=== PATIENT | male | born 1950 | race Two or more races ===

== ENCOUNTER 2017-10-29 16:38 | Inpatient (IN) | payer MEDICARE, OTHER ==
[~2017-10-29] VITALS: Ht 175.3 cm; Wt 95.7 kg
[~2017-10-29 16:38] MED LIST: CEPHALEXIN500 MG ORAL; CLINDAMYCIN HC300 MG ORAL; IBUPROFEN600 MG ORAL; TENORMIN50 MG ORAL; UNOBMED
[2017-10-29 16:54] VITALS: BP 111/58
--- NOTE | 2017-10-29 17:19 | Emergency Room Report ---
History of Present Illness General Chief Complaint: Abdominal Pain Source: Patient, Family Member Present Illness HPI Patient presents with passing blood per rectum. Started this morning. He passed both dark red and black stool. This continued to pass bloody stools and priscila blood and clots through the day. Doesn't feel dizzy when he stands. No vomiting or nausea. No chest pain, palpitations, blood thinners. The patient had colonoscopy 3 months ago and was told he has hemorrhoids. Also after I mentioned the possibility of diverticulosis his daughter states that they found that also. The patient denies any fevers. He has a 6/10 lower abdominal pain that's intermittent with crampiness and nonradiating. The patient denies any dysuria. He usually has to strain with his bowel movements and is on a stool softener at this time. The patient was hospitalized for ulcers when he was young. He has HIV on antivirals. Allergies: Coded Allergies: No Known Allergies (Unverified , 07/05/16) Patient History Past Medical History: see triage record Social History: Denies: smoking, alcohol use, drug use Social History Narrative with daughter Reviewed Nursing Documentation: PMH: Agreed, PSxH: Agreed Nursing Documentation-PMH Hx Hypertension: Yes Review of Systems All Other Systems: negative except mentioned in HPI Physical Exam Vital Signs Date Time Temp Pulse Resp B/P (MAP) Pulse Ox O2 Delivery O2 Flow Rate FiO2 10/29/17 16:44 98.1 76 18 146/91 96 Room Air Sp02 EP Interpretation: reviewed, normal General Appearance: well appearing, no apparent distress, GCS 15 Head: normocephalic, atraumatic Eyes: bilateral eye normal inspection, bilateral eye PERRL ENT: moist mucus membranes Neck: supple Respiratory: lungs clear, normal breath sounds Cardiovascular #1: regular rate, rhythm Cardiovascular #2: 2+ radial (R) Gastrointestinal: normal inspection, normal bowel sounds, non tender, no mass, non-distended Rectal: other - gross blood with clots Musculoskeletal: back normal, gait/station normal, normal range of motion Neurologic: alert, oriented x3, grossly normal Psychiatric: mood/affect normal Skin: normal inspection, warm/dry Medical Decision Making Diagnostic Impression: Primary Impression: Lower GI bleeding Additional Impressions: Diverticulosis Qualified Codes: K57.31 - Diverticulosis of large intestine without perforation or abscess with bleeding Hemorrhoid Qualified Codes: K64.0 - First degree hemorrhoids ER Course Patient presents with lower GI bleed. DDX: diverticulosis, hemorrhoids, UGI source.. Due to recent colonoscopy, mass or polyp less likely. He states he had some dark stool so UGI source not excluded. Due to the amount of bleeding, suspect diverticulosis more than hemorrhoids. Evaluation with EKG, CXR, CT abd/ pelvis and labs. Treatment with IV hydration, pepcid. Tylenol given for abdominal pain (rejects stronger analgesics). Patient start to ambulate to bathroom and became pale and dizzy. With the amount of blood passed in commode, suspect significant hemorrhage. Blood screened. EKG without injury. CXR unremarkable. Labs with normal H/H and coags. Lipase minimally elevated, no clinical signs/symptoms of pancreatitis. CT scanner not functioning. Admit telemetry, Dr. Soliman. CT done. Laboratory Tests Test 10/29/17 17:20 10/29/17 17:30 10/29/17 21:10 White Blood Count 8.8 K/UL (4.8-10.8) 12.6 K/UL (4.8-10.8) H Red Blood Count 4.42 M/UL (4.70-6.10) L 4.00 M/UL (4.70-6.10) L Hemoglobin 15.0 G/DL (14.2-18.0) 13.6 G/DL (14.2-18.0) L Hematocrit 44.7 % (42.0-52.0) 40.7 % (42.0-52.0) L Mean Corpuscular Volume 101 FL (80-99) H 102 FL (80-99) H Mean Corpuscular Hemoglobin 34.0 PG (27.0-31.0) H 34.0 PG (27.0-31.0) H Mean Corpuscular Hemoglobin Concent 33.6 G/DL (32.0-36.0) 33.4 G/DL (32.0-36.0) Red Cell Distribution Width 11.4 % (11.6-14.8) L 11.6 % (11.6-14.8) Platelet Count 312 K/UL (150-450) 295 K/UL (150-450) Mean Platelet Volume 6.9 FL (6.5-10.1) 6.8 FL (6.5-10.1) Neutrophils (%) (Auto) 43.8 % (45.0-75.0) L 68.2 % (45.0-75.0) Lymphocytes (%) (Auto) 30.4 % (20.0-45.0) 16.9 % (20.0-45.0) L Monocytes (%) (Auto) 6.9 % (1.0-10.0) 4.1 % (1.0-10.0) Eosinophils (%) (Auto) 17.8 % (0.0-3.0) H 10.0 % (0.0-3.0) H Basophils (%) (Auto) 1.0 % (0.0-2.0) 0.9 % (0.0-2.0) Prothrombin Time 10.0 SEC (9.30-11.50) Prothrombin Time INR 1.0 (0.9-1.1) PTT 27 SEC (23-33) Sodium Level 141 MMOL/L (136-145) Potassium Level 3.8 MMOL/L (3.5-5.1) Chloride Level 103 MMOL/L (98-107) Carbon Dioxide Level 30 MMOL/L (21-32) Anion Gap 8 mmol/L (5-15) Blood Urea Nitrogen 15 mg/dL (7-18) Creatinine 1.2 MG/DL (0.55-1.30) Estimate Glomerular Filtration Rate > 60 mL/min (>60) Glucose Level 108 MG/DL (74-106) H Calcium Level 9.0 MG/DL (8.5-10.1) Total Bilirubin 0.2 MG/DL (0.2-1.0) Aspartate Amino Transferase (AST) 20 U/L (15-37) Alanine Aminotransferase (ALT) 27 U/L (12-78) Alkaline Phosphatase 112 U/L (46-116) Total Creatine Kinase 160 U/L (26-308) Troponin I 0.000 ng/mL (0.000-0.056) Total Protein 7.5 G/DL (6.4-8.2) Albumin 3.6 G/DL (3.4-5.0) Globulin 3.9 g/dL Albumin/Globulin Ratio 0.9 (1.0-2.7) L Lipase 537 U/L (73-393) H Urine Color Pale yellow Urine Appearance Clear Urine pH 5 (4.5-8.0) Urine Specific [place] 1.020 (1.005-1.035) Urine Protein Negative (NEGATIVE) Urine Glucose (UA) Negative (NEGATIVE) Urine Ketones Negative (NEGATIVE) Urine Occult Blood 1+ (NEGATIVE) H Urine Nitrite Negative (NEGATIVE) Urine Bilirubin Negative (NEGATIVE) Urine Urobilinogen Normal MG/DL (0.0-1.0) Urine Leukocyte Esterase Negative (NEGATIVE) Urine RBC 2-4 /HPF (0 - 0) H Urine WBC 0-2 /HPF (0 - 0) Urine Squamous Epithelial Cells None /LPF (NONE/OCC) Urine Bacteria Occasional /HPF (NONE) EKG Diagnostic Results Rate: bradycardiac ST Segments: no acute changes Rhythm Strip Diag. Results EP Interpretation: yes Rhythm: NSR, no PVC's, no ectopy Chest X-Ray Diagnostic Results Chest X-Ray Diagnostic Results : Chest X-Ray Ordered: Yes # of Views/Limited/Complete: 1 View Indication: Other EP Interpretation: Yes Interpretation: no effusion, no pneumothorax, other - atelectasis L Impression: Other Electronically Signed by: Osbaldo May MD CT/MRI/US Diagnostic Results CT/MRI/US Diagnostic Results : Imaging Test Ordered: abd/pelvis Impression IMPRESSION: Thickening of some small bowel loops may be reflective of an enteritis ( infectious or inflammatory) the appropriate clinical setting. No bowel obstruction. Appendix is normal. Scattered colonic diverticula. No evidence of acute diverticulitis. Left lower quadrant hernia containing unobstructed loop of sigmoid colon. 2 cm indeterminate left adrenal nodule. Recommend comparison with prior exams, if available, to assess stability. Alternatively, definitive evaluation with adrenal protocol CT or MRI recommended on nonemergent basis. Possible subcentimeter hepatic cyst. Bladder wall thickening versus underdistention. Correlate with urinalysis. Last Vital Signs Date Time Temp Pulse Resp B/P (MAP) Pulse Ox O2 Delivery O2 Flow Rate FiO2 10/30/17 03:35 63 10/30/17 00:00 98.1 20 130/90 98 Room Air Status: improved Disposition: ADMITTED INPATIENT Condition: Serious Osbaldo May M.D. Oct 29, 2017 17:19
[2017-10-29 17:36] LABS: EOSINOPHILS % (AUTO) 17.8 % (0.0-3.0); HEMATOCRIT 44.7 % (42.0-52.0); LYMPHOCYTES % (AUTO) 30.4 % (20.0-45.0); MEAN CORPUSCULAR VOLUME 101 FL (80-99); MONOCYTES % (AUTO) 6.9 % (1.0-10.0); NEUTROPHILS % (AUTO) 43.8 % (45.0-75.0); PLATELET COUNT 312 K/UL (150-450); RED BLOOD COUNT 4.42 M/UL (4.70-6.10); RED CELL DISTRIBUTION WIDTH 11.4 % (11.6-14.8); WHITE BLOOD COUNT 8.8 K/UL (4.8-10.8)
[2017-10-29 17:43] LABS: APPEARANCE,URINE CLEAR; BILIRUBIN, URINE NEGATIVE (NEGATIVE); COLOR,URINE PALE YELLOW; GLUCOSE, URINE (UA) NEGATIVE (NEGATIVE); KETONES,URINE NEGATIVE (NEGATIVE); LEUKOCYTE ESTERASE ,URINE NEGATIVE (NEGATIVE); NITRITE,URINE NEGATIVE (NEGATIVE); PH,URINE 5 (4.5-8.0); PROTEIN,URINE NEGATIVE (NEGATIVE); UROBILINOGEN,URINE NORMAL MG/DL (0.0-1.0)
[2017-10-29 17:55] LABS: ANION GAP 8 mmol/L (5-15); BLOOD UREA NITROGEN 15 mg/dL (7-18); CARBON DIOXIDE 30 MMOL/L (21-32); CHLORIDE 103 MMOL/L (98-107); CREATININE 1.2 MG/DL (0.55-1.30); POTASSIUM 3.8 MMOL/L (3.5-5.1); SODIUM 141 MMOL/L (136-145)
[2017-10-29 17:59] LABS: ALANINE AMINOTRANSFERASE 27 U/L (12-78); ALBUMIN 3.6 G/DL (3.4-5.0); ALBUMIN/GLOBULIN RATIO 0.9 (1.0-2.7); ALKALINE PHOSPHATASE 112 U/L (46-116); ASPARTATE AMINO TRANSFERASE 20 U/L (15-37); BILIRUBIN,TOTAL 0.2 MG/DL (0.2-1.0); CREATINE KINASE 160 U/L (26-308)
[2017-10-29 18:38] VITALS: BP 135/83
[2017-10-29] MEDS ORDERED: BACLOFEN10 MG ORAL (18:58)
[2017-10-29] MEDS ORDERED: LORATADINE10 M3 PO (18:58)
[2017-10-29] MEDS ORDERED: CAPSAICIN60 GM TP (18:58)
[2017-10-29] MEDS ORDERED: ATRIPLA TABLET1 EAC1 ORAL (18:58)
[2017-10-29] MEDS ORDERED: FLUOCINONIDE-E15 G1 TP (18:58)
[2017-10-29] MEDS ORDERED: ASPIR 8181 MG ORAL (18:58)
[2017-10-29] MEDS ORDERED: IBUPROFEN600 MG ORAL (18:58)
[2017-10-29] MEDS ORDERED: ATENOLOL50 MG ORAL (18:58)
[2017-10-29] MEDS ORDERED: DIPHENHYDRAMINE25 M1 ORAL (18:58)
[2017-10-29 19:20] VITALS: BP 123/71
[2017-10-29 20:55] VITALS: BP 131/69
[2017-10-29 21:40] LABS: BASOPHILS % (AUTO) 0.9 % (0.0-2.0); HEMATOCRIT 40.7 % (42.0-52.0); HEMOGLOBIN 13.6 G/DL (14.2-18.0); LYMPHOCYTES % (AUTO) 16.9 % (20.0-45.0); MEAN CORPUSCULAR VOLUME 102 FL (80-99); MONOCYTES % (AUTO) 4.1 % (1.0-10.0); NEUTROPHILS % (AUTO) 68.2 % (45.0-75.0); PLATELET COUNT 295 K/UL (150-450); RED CELL DISTRIBUTION WIDTH 11.6 % (11.6-14.8); WHITE BLOOD COUNT 12.6 K/UL (4.8-10.8)
[2017-10-29 22:00] VITALS: BP 149/83
[2017-10-29] MEDS: D5NS 1,000 ML IV SCH (22:31)
[2017-10-29] MEDS: Pantoprazole Inj IVP SCH (22:32)
[2017-10-29] MEDS: Piperacillin/Tazobactam 3.375 GM in NS 110 ML IVPB SCH (22:32)
--- NOTE | 2017-10-29 23:30 | History and Physical Report ---
DATE OF ADMISSION: 10/29/2017 CHIEF COMPLAINT: GI bleed. HISTORY OF PRESENT ILLNESS: The patient is a pleasant 67-year-old male. He has a history of HIV, internal hemorrhoids, diverticulitis, and hypertension, who presented from home with complaints of bright red blood per rectum. According to the patient, he was well until the day of admission. He developed lower abdominal pain with episodes of bright red blood with some clots. He recently underwent endoscopy in March for constipation and was noted to have diverticulitis and internal hemorrhoids at that time. He denies any fevers or chills. He has had no chest pain. He feels "bloated." He is on aspirin, not on any NSAIDs. On evaluation in the emergency room, the patient's hemoglobin was stable at 15. Coags are normal, but in light of the bleeding, he is now admitted for further evaluation and care. PAST MEDICAL HISTORY: History of osteoarthritis. PAST SURGICAL HISTORY: None. CURRENT MEDICATIONS: Reconciled and reviewed. ALLERGIES: None. FAMILY HISTORY: None. SOCIAL HISTORY: Negative for tobacco, ethanol, or drugs. REVIEW OF SYSTEMS: Negative except for bloating, abdominal pain, and bright red blood. PHYSICAL EXAMINATION: VITAL SIGNS: Temperature 95, pulse 63, respirations 14, and blood pressure 135/83. GENERAL: The patient is well-developed male, in no apparent distress. HEART: Regular rate and rhythm. LUNGS: Clear. ABDOMEN: Soft, slightly distended. There is no rebound or guarding. EXTREMITIES: Without clubbing, cyanosis, or edema. LABORATORY DATA: Sodium 141, potassium 3.8. White count 8, hemoglobin 15, and platelet count of 312,000. UA was clear. ASSESSMENT: 1. This is a pleasant male with complaints of gastrointestinal bleed suspect secondary to diverticulosis. However, his gastrointestinal bleed is suspect lower. 2. Possible diverticulitis. 3. History of human immunodeficiency virus. PLAN: Hold aspirin. Intravenous proton pump inhibitors. Monitor serial CBCs. GI consultation will be obtained. Plan of care was discussed at bedside with the patient and the patient's family. Anish Soliman M.D. DR: DEREK JOB#: [id number] CC:
[2017-10-30] VITALS (7 sets, daily range): BP systolic 96–130; BP diastolic 68–90
[2017-10-30] MEDS: Piperacillin/Tazobactam 3.375 GM in NS 110 ML IVPB SCH ×3 (05:43→22:14)
[2017-10-30 07:42] LABS: BASOPHILS % (AUTO) 1.1 % (0.0-2.0); HEMATOCRIT 35.7 % (42.0-52.0); HEMOGLOBIN 12.1 G/DL (14.2-18.0); LYMPHOCYTES % (AUTO) 24.9 % (20.0-45.0); MEAN CORPUSCULAR VOLUME 102 FL (80-99); MONOCYTES % (AUTO) 7.2 % (1.0-10.0); NEUTROPHILS % (AUTO) 49.8 % (45.0-75.0); PLATELET COUNT 257 K/UL (150-450); RED CELL DISTRIBUTION WIDTH 11.4 % (11.6-14.8); WHITE BLOOD COUNT 7.6 K/UL (4.8-10.8)
[2017-10-30 08:12] LABS: ALANINE AMINOTRANSFERASE 21 U/L (12-78); ALBUMIN/GLOBULIN RATIO 0.9 (1.0-2.7); ALKALINE PHOSPHATASE 93 U/L (46-116); ANION GAP 6 mmol/L (5-15); ASPARTATE AMINO TRANSFERASE 17 U/L (15-37); BILIRUBIN,TOTAL 0.3 MG/DL (0.2-1.0); BLOOD UREA NITROGEN 14 mg/dL (7-18); CALCIUM 8.2 MG/DL (8.5-10.1); CARBON DIOXIDE 29 MMOL/L (21-32); CHLORIDE 106 MMOL/L (98-107); CREATININE 1.1 MG/DL (0.55-1.30); POTASSIUM 3.8 MMOL/L (3.5-5.1); SODIUM 141 MMOL/L (136-145)
[2017-10-30] MEDS: Pantoprazole Inj IVP SCH ×2 (08:56→21:22)
--- NOTE | 2017-10-30 09:58 | Diagnostic Imaging Report ---
. Indication: Pain Technique: XRAY Chest 1v Comparison: None Findings: Heart is borderline enlarged. Mediastinal contours are sharp. There is streaky atelectasis of the left base. Otherwise, there is no focal airspace consolidation, pleural effusion or pneumothorax. No acute osseous abnormality seen. Impression: Borderline cardiomegaly. Streaky opacity at the left base thought to represent subsegmental atelectasis. Clinical correlation recommended. Study obtained via the emergency department however patient admitted to the hospital at time of dictation of final report.
[2017-10-30] MEDS: D5NS 1,000 ML IV SCH ×2 (10:16→23:40)
--- NOTE | 2017-10-30 11:29 | Diagnostic Imaging Report ---
Indication: Abdominal pain Technique: CT of the abdomen and pelvis utilizing automated exposure control with intravenous contrast. Venous scanning performed. CT dose: Total DLP 1091.61 mGycm; CTDI vol 18.84 mGy Comparison: None Findings: Dependent atelectasis noted in the lung bases. Heart is borderline enlarged. Aortic valvular and coronary arterial calcifications noted. 8 mm well-circumscribed low-attenuation lesion in the right hepatic lobe is too small to definitively characterize but may represent a cyst (series 3 image #18). There is a punctate calcification in the posterior right hepatic lobe. Gallbladder is unremarkable in appearance. Portal vein is patent. There is a 2 cm indeterminate left adrenal nodule. Right adrenal gland is normal in appearance. The spleen and pancreas are unremarkable in appearance. Kidneys are symmetric in enhancement. No urinary tract stone or hydronephrosis bilaterally. Apparent thickening of the bladder likely related to underdistention. Prostate is mildly enlarged with coarse central calcification. There is no free intraperitoneal air. No ascites. There is no bowel obstruction. There is thickening of some small bowel loops. These findings may be reflective of an enteritis in the appropriate clinical setting. The appendix is normal. There are a few scattered colonic diverticula. There is no evidence to suggest acute diverticulitis. Abdominal aorta is normal in caliber. There are small bilateral fat-containing inguinal hernias. There is an additional left lower quadrant hernia with the defect measuring approximately 4 cm in width. This hernia is noted to contain fat and a nonobstructed loop of sigmoid colon. There is multilevel degenerative change of the spine. No acute osseous abnormality is seen. IMPRESSION: Thickening of some small bowel loops may be reflective of an enteritis (infectious or inflammatory) the appropriate clinical setting. No bowel obstruction. Appendix is normal. Scattered colonic diverticula. No evidence of acute diverticulitis. Left lower quadrant hernia containing unobstructed loop of sigmoid colon. 2 cm indeterminate left adrenal nodule. Recommend comparison with prior exams, if available, to assess stability. Alternatively, definitive evaluation with adrenal protocol CT or MRI recommended on nonemergent basis. Possible subcentimeter hepatic cyst. Bladder wall thickening versus underdistention. Correlate with urinalysis. Additional findings as above. This corresponds with the statrad preliminary report. The CT scanner at [facility] is accredited by the [employer] and the scans are performed using protocols designed to limit radiation exposure to as low as reasonably achievable to attain images of sufficient resolution adequate for diagnostic evaluation.
--- NOTE | 2017-10-30 12:25 | General Progress Note ---
Assessment/Plan Assessment/Plan GI CONSULT Dictated Assessment - Hematochezia,suspect hemorrhoidal, less likely diverticular - Diverticulosis - Macrocytic anemia - HIV (+) - Transient elevated Lipase Recommendations - Clear liquid - Laxative - check B12, folate - Monitor CBC - Colonoscopy if bleeding persists - Hemorrhoidal cautery by colorectal surgery at later date Subjective Allergies: Coded Allergies: No Known Allergies (Unverified , 07/05/16) Objective Last 24 Hour Vital Signs Date Time Temp Pulse Resp B/P (MAP) Pulse Ox O2 Delivery O2 Flow Rate FiO2 10/30/17 08:00 97.5 62 18 129/72 98 Room Air 10/30/17 04:00 97.3 63 19 111/75 97 Room Air 10/30/17 03:35 63 10/30/17 00:14 62 10/30/17 00:00 98.1 67 20 130/90 98 Room Air 10/29/17 22:00 98.0 78 20 149/83 98 Room Air 10/29/17 21:37 65 10/29/17 21:16 98.5 66 14 131/69 98 Room Air 10/29/17 20:55 98.5 66 14 131/69 98 Room Air 10/29/17 19:20 98.5 72 14 123/71 98 Room Air 10/29/17 18:38 98.5 63 14 135/83 98 Room Air 10/29/17 16:54 98.1 55 20 111/58 96 Room Air 10/29/17 16:44 98.1 76 18 146/91 96 Room Air Intake and Output 10/29/17 10/30/17 19:00 07:00 Intake Total 710.5 ml Output Total 30 ml Balance 680.5 ml Intake IV Total 710.5 ml Output Stool Total 30 ml # Voids 1 2 # Bowel Movements 7 Laboratory Tests 10/29/17 17:20: White Blood Count 8.8, Red Blood Count 4.42L, Hemoglobin 15.0, Hematocrit 44.7, Mean Corpuscular Volume 101H, Mean Corpuscular Hemoglobin 34.0H, Mean Corpuscular Hemoglobin Concent 33.6, Red Cell Distribution Width 11.4L, Platelet Count 312, Mean Platelet Volume 6.9, Neutrophils (%) (Auto) 43.8L, Lymphocytes (%) (Auto) 30.4, Monocytes (%) (Auto) 6.9, Eosinophils (%) (Auto) 17.8H, Basophils (%) (Auto) 1.0, Prothrombin Time 10.0, Prothromb Time International Ratio 1.0, Activated Partial Thromboplast Time 27, Sodium Level 141, Potassium Level 3.8, Chloride Level 103, Carbon Dioxide Level 30, Anion Gap 8, Blood Urea Nitrogen 15, Creatinine 1.2, Estimat Glomerular Filtration Rate > 60, Glucose Level 108H, Calcium Level 9.0, Total Bilirubin 0.2, Aspartate Amino Transf (AST/SGOT) 20, Alanine Aminotransferase (ALT/SGPT) 27, Alkaline Phosphatase 112, Total Creatine Kinase 160, Troponin I 0.000, Total Protein 7.5, Albumin 3.6, Globulin 3.9, Albumin/Globulin Ratio 0.9L, Lipase 537H 10/29/17 17:30: Urine Color Pale yellow, Urine Appearance Clear, Urine pH 5, Urine Specific [place] 1.020, Urine Protein Negative, Urine Glucose (UA) Negative, Urine Ketones Negative, Urine Occult Blood 1+H, Urine Nitrite Negative, Urine Bilirubin Negative, Urine Urobilinogen Normal, Urine Leukocyte Esterase Negative , Urine RBC 2-4H, Urine WBC 0-2, Urine Squamous Epithelial Cells None, Urine Bacteria Occasional 10/29/17 21:10: White Blood Count 12.6H, Red Blood Count 4.00L, Hemoglobin 13.6L, Hematocrit 40.7L, Mean Corpuscular Volume 102H, Mean Corpuscular Hemoglobin 34.0H, Mean Corpuscular Hemoglobin Concent 33.4, Red Cell Distribution Width 11.6, Platelet Count 295, Mean Platelet Volume 6.8, Neutrophils (%) (Auto) 68.2, Lymphocytes (% ) (Auto) 16.9L, Monocytes (%) (Auto) 4.1, Eosinophils (%) (Auto) 10.0H, Basophils (%) (Auto) 0.9 10/30/17 06:15: White Blood Count 7.6, Red Blood Count 3.50L, Hemoglobin 12.1L, Hematocrit 35.7L , Mean Corpuscular Volume 102H, Mean Corpuscular Hemoglobin 34.6H, Mean Corpuscular Hemoglobin Concent 33.9, Red Cell Distribution Width 11.4L, Platelet Count 257, Mean Platelet Volume 6.3L, Neutrophils (%) (Auto) 49.8, Lymphocytes (%) (Auto) 24.9, Monocytes (%) (Auto) 7.2, Eosinophils (%) (Auto) 17.0H, Basophils (%) (Auto) 1.1, Sodium Level 141, Potassium Level 3.8, Chloride Level 106, Carbon Dioxide Level 29, Anion Gap 6, Blood Urea Nitrogen 14 , Creatinine 1.1, Estimat Glomerular Filtration Rate > 60, Glucose Level 105, Calcium Level 8.2L, Total Bilirubin 0.3, Aspartate Amino Transf (AST/SGOT) 17, Alanine Aminotransferase (ALT/SGPT) 21, Alkaline Phosphatase 93, Total Protein 6.2L, Albumin 3.0L, Globulin 3.2, Albumin/Globulin Ratio 0.9L 10/30/17 06:50: Lipase 251 10/30/17 11:50: White Blood Count [Pending], Red Blood Count [Pending], Hemoglobin [Pending], Hematocrit [Pending], Mean Corpuscular Volume [Pending], Mean Corpuscular Hemoglobin [Pending], Mean Corpuscular Hemoglobin Concent [Pending], Red Cell Distribution Width [Pending], Platelet Count [Pending], Mean Platelet Volume [ Pending], Neutrophils (%) (Auto) [Pending], Lymphocytes (%) (Auto) [Pending], Monocytes (%) (Auto) [Pending], Eosinophils (%) (Auto) [Pending], Basophils (%) (Auto) [Pending] Height (Feet): 5 Height (Inches): 9.00 Weight (Pounds): 211 SHASHI MARTINEZ Oct 30, 2017 12:25
[2017-10-30 12:37] LABS: BASOPHILS % (AUTO) 1.3 % (0.0-2.0); EOSINOPHILS % (AUTO) 16.4 % (0.0-3.0); HEMATOCRIT 38.3 % (42.0-52.0); HEMOGLOBIN 12.6 G/DL (14.2-18.0); LYMPHOCYTES % (AUTO) 26.6 % (20.0-45.0); MEAN CORPUSCULAR VOLUME 102 FL (80-99); MONOCYTES % (AUTO) 7.3 % (1.0-10.0); NEUTROPHILS % (AUTO) 48.4 % (45.0-75.0); PLATELET COUNT 268 K/UL (150-450); RED BLOOD COUNT 3.77 M/UL (4.70-6.10); RED CELL DISTRIBUTION WIDTH 11.5 % (11.6-14.8); WHITE BLOOD COUNT 8.3 K/UL (4.8-10.8)
[2017-10-30] MEDS ORDERED: Bisacodyl EC 5mg tab ORAL ONE (13:00)
[2017-10-30] MEDS ORDERED: Magnesium Citrate Liq Btl ORAL ONE (13:15)
[2017-10-30] MEDS ORDERED: Nulytely 4L ORAL ONE (14:30)
[2017-10-30 16:33] LABS: BASOPHILS % (AUTO) 1.2 % (0.0-2.0); EOSINOPHILS % (AUTO) 17.1 % (0.0-3.0); HEMATOCRIT 36.3 % (42.0-52.0); HEMOGLOBIN 12.3 G/DL (14.2-18.0); LYMPHOCYTES % (AUTO) 27.1 % (20.0-45.0); MEAN CORPUSCULAR VOLUME 101 FL (80-99); MONOCYTES % (AUTO) 7.4 % (1.0-10.0); NEUTROPHILS % (AUTO) 47.3 % (45.0-75.0); PLATELET COUNT 285 K/UL (150-450); RED BLOOD COUNT 3.61 M/UL (4.70-6.10); RED CELL DISTRIBUTION WIDTH 11.4 % (11.6-14.8); WHITE BLOOD COUNT 8.4 K/UL (4.8-10.8)
--- NOTE | 2017-10-30 17:49 | General Progress Note ---
Assessment/Plan Problem List: (1) Diverticulitis ICD Codes: K57.92 - Diverticulitis of intestine, part unspecified, without perforation or abscess without bleeding SNOMED: 078526776 (2) Diverticulosis ICD Codes: K57.90 - Diverticulosis of intestine, part unspecified, without perforation or abscess without bleeding SNOMED: 35177417 Qualifiers: Qualified Codes: K57.31 - Diverticulosis of large intestine without perforation or abscess with bleeding (3) Hemorrhoid ICD Codes: K64.9 - Unspecified hemorrhoids SNOMED: 95520418 Qualifiers: Qualified Codes: K64.0 - First degree hemorrhoids (4) Lower GI bleeding ICD Codes: K92.2 - Gastrointestinal hemorrhage, unspecified SNOMED: 91438828 Status: stable, not improved Assessment/Plan IV abx GI eval +/- colonoscopy PPI ID eval Subjective ROS Limited/Unobtainable: No Constitutional: Reports: malaise, weakness HEENT: Reports: no symptoms Cardiovascular: Reports: no symptoms Respiratory: Reports: no symptoms Gastrointestinal/Abdominal: Reports: abdominal pain, blood in stool Genitourinary: Reports: no symptoms Neurologic/Psychiatric: Reports: no symptoms Endocrine: Reports: no symptoms Hematologic/Lymphatic: Reports: no symptoms Allergies: Coded Allergies: No Known Allergies (Unverified , 07/05/16) All Systems: reviewed and negative except above Subjective continued BRBPR. +lower abd pain, no fever or chills. no cp.sob. Objective Last 24 Hour Vital Signs Date Time Temp Pulse Resp B/P (MAP) Pulse Ox O2 Delivery O2 Flow Rate FiO2 10/30/17 16:06 77 127/78 10/30/17 16:00 97.0 99 18 123/80 95 Room Air 10/30/17 12:00 97.3 60 18 123/77 97 Room Air 10/30/17 12:00 55 10/30/17 08:00 62 10/30/17 08:00 97.5 62 18 129/72 98 Room Air 10/30/17 04:00 97.3 63 19 111/75 97 Room Air 10/30/17 03:35 63 10/30/17 00:14 62 10/30/17 00:00 98.1 67 20 130/90 98 Room Air 10/29/17 22:00 98.0 78 20 149/83 98 Room Air 10/29/17 21:37 65 10/29/17 21:16 98.5 66 14 131/69 98 Room Air 10/29/17 20:55 98.5 66 14 131/69 98 Room Air 10/29/17 19:20 98.5 72 14 123/71 98 Room Air 10/29/17 18:38 98.5 63 14 135/83 98 Room Air Intake and Output 10/29/17 10/30/17 19:00 07:00 Intake Total 710.5 ml Output Total 30 ml Balance 680.5 ml Intake IV Total 710.5 ml Output Stool Total 30 ml # Voids 1 2 # Bowel Movements 7 Laboratory Tests 10/29/17 21:10: White Blood Count 12.6H, Red Blood Count 4.00L, Hemoglobin 13.6L, Hematocrit 40.7L, Mean Corpuscular Volume 102H, Mean Corpuscular Hemoglobin 34.0H, Mean Corpuscular Hemoglobin Concent 33.4, Red Cell Distribution Width 11.6, Platelet Count 295, Mean Platelet Volume 6.8, Neutrophils (%) (Auto) 68.2, Lymphocytes (% ) (Auto) 16.9L, Monocytes (%) (Auto) 4.1, Eosinophils (%) (Auto) 10.0H, Basophils (%) (Auto) 0.9 10/30/17 06:15: White Blood Count 7.6, Red Blood Count 3.50L, Hemoglobin 12.1L, Hematocrit 35.7L , Mean Corpuscular Volume 102H, Mean Corpuscular Hemoglobin 34.6H, Mean Corpuscular Hemoglobin Concent 33.9, Red Cell Distribution Width 11.4L, Platelet Count 257, Mean Platelet Volume 6.3L, Neutrophils (%) (Auto) 49.8, Lymphocytes (%) (Auto) 24.9, Monocytes (%) (Auto) 7.2, Eosinophils (%) (Auto) 17.0H, Basophils (%) (Auto) 1.1, Sodium Level 141, Potassium Level 3.8, Chloride Level 106, Carbon Dioxide Level 29, Anion Gap 6, Blood Urea Nitrogen 14 , Creatinine 1.1, Estimat Glomerular Filtration Rate > 60, Glucose Level 105, Calcium Level 8.2L, Total Bilirubin 0.3, Aspartate Amino Transf (AST/SGOT) 17, Alanine Aminotransferase (ALT/SGPT) 21, Alkaline Phosphatase 93, Total Protein 6.2L, Albumin 3.0L, Globulin 3.2, Albumin/Globulin Ratio 0.9L 10/30/17 06:50: Lipase 251 10/30/17 11:50: White Blood Count 8.3, Red Blood Count 3.77L, Hemoglobin 12.6L, Hematocrit 38.3L , Mean Corpuscular Volume 102H, Mean Corpuscular Hemoglobin 33.3H, Mean Corpuscular Hemoglobin Concent 32.8, Red Cell Distribution Width 11.5L, Platelet Count 268, Mean Platelet Volume 6.7, Neutrophils (%) (Auto) 48.4, Lymphocytes (%) (Auto) 26.6, Monocytes (%) (Auto) 7.3, Eosinophils (%) (Auto) 16.4H, Basophils (%) (Auto) 1.3 10/30/17 16:14: White Blood Count 8.4, Red Blood Count 3.61L, Hemoglobin 12.3L, Hematocrit 36.3L , Mean Corpuscular Volume 101H, Mean Corpuscular Hemoglobin 34.0H, Mean Corpuscular Hemoglobin Concent 33.8, Red Cell Distribution Width 11.4L, Platelet Count 285, Mean Platelet Volume 6.7, Neutrophils (%) (Auto) 47.3, Lymphocytes (%) (Auto) 27.1, Monocytes (%) (Auto) 7.4, Eosinophils (%) (Auto) 17.1H, Basophils (%) (Auto) 1.2 Height (Feet): 5 Height (Inches): 9.00 Weight (Pounds): 211 General Appearance: WD/WN, alert Neck: supple, normal inspection Cardiovascular: normal rate, regular rhythm Respiratory/Chest: chest wall non-tender, lungs clear, normal breath sounds, no respiratory distress Abdomen: normal bowel sounds, non tender, soft, no organomegaly Edema: no edema noted Arm (L), no edema noted Arm (R), no edema noted Leg (L), no edema noted Leg (R), no edema noted Pedal (L), no edema noted Pedal (R), no edema noted Generalized BABS ROBERTS Oct 30, 2017 17:49
[2017-10-30 19:41] LABS: BASOPHILS % (AUTO) 0.9 % (0.0-2.0); EOSINOPHILS % (AUTO) 15.2 % (0.0-3.0); HEMATOCRIT 34.7 % (42.0-52.0); HEMOGLOBIN 11.8 G/DL (14.2-18.0); LYMPHOCYTES % (AUTO) 31.9 % (20.0-45.0); MEAN CORPUSCULAR VOLUME 101 FL (80-99); MONOCYTES % (AUTO) 7.9 % (1.0-10.0); NEUTROPHILS % (AUTO) 44.2 % (45.0-75.0); PLATELET COUNT 300 K/UL (150-450); RED BLOOD COUNT 3.45 M/UL (4.70-6.10); RED CELL DISTRIBUTION WIDTH 11.5 % (11.6-14.8)
[2017-10-30] MEDS ORDERED: Simethicone 80mg tab PO ONE (22:15)
[2017-10-31] VITALS (9 sets, daily range): BP systolic 100–137; BP diastolic 52–76
--- NOTE | 2017-10-31 03:30 | Consultation ---
DATE OF CONSULTATION: 10/30/2017 GASTROENTEROLOGY CONSULTATION CONSULTING PHYSICIAN: Geneva Jesus M.D. ATTENDING/REFERRING PHYSICIAN: Anish Soliman M.D. CHIEF COMPLAINT: I was asked to see this patient by Dr. Anish Soliman for evaluation of gastrointestinal bleeding. HISTORY OF PRESENT ILLNESS: The patient is a 67-year-old [place] man with history of HIV positivity (the patient does not want his family to know about this), who came to the hospital due to one-day history of multiple hematochezia. The patient was well and then noticed some lower abdominal discomfort and multiple episodes of bright red blood per rectum with some clots. The patient had an endoscopy and colonoscopy in 03/2016, at an outside hospital and he has the report. The colonoscopy showed hemorrhoids and diverticulosis. The patient denies any vomiting. PAST MEDICAL HISTORY: History of osteoarthritis, history of HIV positivity, internal hemorrhoids, diverticulosis, and hypertension. FAMILY HISTORY: Father of myocardial infarction. SOCIAL HISTORY: The patient does not smoke or drink alcohol. The patient is and has 2 sons and 1 daughter. ALLERGIES: None. REVIEW OF SYSTEMS: Otherwise negative. MEDICATIONS: Atripla, atenolol, and aspirin. PHYSICAL EXAMINATION: GENERAL: A pleasant man, seen in his room. HEENT: Normocephalic, atraumatic. Sclerae anicteric. Oropharynx clear. NECK: Supple. CHEST: Clear to auscultation. CARDIOVASCULAR: Regular rate. ABDOMEN: Soft. Good bowel sounds. There is no organomegaly. There is no obvious tenderness to palpation, masses, or organomegaly. RECTAL: Revealed hemorrhoids which was positive for prolapse. EXTREMITIES: No edema. NEUROLOGIC: Nonfocal. LABORATORY AND DIAGNOSTIC DATA: Noted. ASSESSMENT: This patient has come to the hospital due to gastrointestinal bleeding. He does have some macrocytic indices on CBC, which is unusual and he should be evaluated for B12 and folate deficiency. Since the bleeding seems to have had stopped this morning, but then it started again. Therefore, the patient was scheduled for endoscopy and colonoscopy for tomorrow for evaluation of the site of bleeding. In the meantime, he can be transfused as needed and vitamin B12 and folate levels will be measured for tomorrow. RECOMMENDATIONS: Per above discussion and per orders written in the chart. Thank you for asking me to participate in the care of this patient. Geneva Jesus M.D. DR: SAMRA JOB#: [id number] CC: PAMELA
[2017-10-31] MEDS: Piperacillin/Tazobactam 3.375 GM in NS 110 ML IVPB SCH ×3 (06:37→22:23)
[2017-10-31] MEDS ORDERED: Sorbitol Solution UD 30ml ORAL ONE (07:00)
[2017-10-31 07:23] LABS: EOSINOPHILS % (AUTO) 13.2 % (0.0-3.0); HEMATOCRIT 31.2 % (42.0-52.0); HEMOGLOBIN 10.7 G/DL (14.2-18.0); LYMPHOCYTES % (AUTO) 23.1 % (20.0-45.0); MEAN CORPUSCULAR VOLUME 102 FL (80-99); MONOCYTES % (AUTO) 7.8 % (1.0-10.0); PLATELET COUNT 255 K/UL (150-450); RED BLOOD COUNT 3.07 M/UL (4.70-6.10); RED CELL DISTRIBUTION WIDTH 11.4 % (11.6-14.8); WHITE BLOOD COUNT 6.8 K/UL (4.8-10.8)
[2017-10-31 08:32] LABS: % IRON SATURATION 55 % (15-50); IRON 98 ug/dL (50-175); TOTAL IRON BINDING CAPACITY 179 ug/dL (250-450)
[2017-10-31] MEDS: Pantoprazole Inj IVP SCH ×3 (09:00→22:23)
--- NOTE | 2017-10-31 10:00 | General Progress Note ---
Assessment/Plan Problem List: (1) Diverticulitis ICD Codes: K57.92 - Diverticulitis of intestine, part unspecified, without perforation or abscess without bleeding SNOMED: 482798130 (2) Diverticulosis ICD Codes: K57.90 - Diverticulosis of intestine, part unspecified, without perforation or abscess without bleeding SNOMED: 71029917 Qualifiers: Qualified Codes: K57.31 - Diverticulosis of large intestine without perforation or abscess with bleeding (3) Hemorrhoid ICD Codes: K64.9 - Unspecified hemorrhoids SNOMED: 58737424 Qualifiers: Qualified Codes: K64.0 - First degree hemorrhoids (4) Lower GI bleeding ICD Codes: K92.2 - Gastrointestinal hemorrhage, unspecified SNOMED: 96313480 Status: stable, progressing Assessment/Plan IV abx colonoscopy PPI ID eval Subjective ROS Limited/Unobtainable: No Constitutional: Reports: malaise, weakness HEENT: Reports: no symptoms Cardiovascular: Reports: no symptoms Respiratory: Reports: no symptoms Gastrointestinal/Abdominal: Reports: rectal bleeding Genitourinary: Reports: no symptoms Neurologic/Psychiatric: Reports: no symptoms Endocrine: Reports: no symptoms Hematologic/Lymphatic: Reports: anemia Allergies: Coded Allergies: No Known Allergies (Unverified , 07/05/16) All Systems: reviewed and negative except above Subjective no more bleeding. decreased abd pain. on abx. Objective Last 24 Hour Vital Signs Date Time Temp Pulse Resp B/P (MAP) Pulse Ox O2 Delivery O2 Flow Rate FiO2 10/31/17 08:00 97.9 65 20 100/52 97 10/31/17 04:00 88 10/31/17 04:00 98.0 86 18 104/72 100 10/31/17 00:00 79 10/31/17 00:00 97.2 73 18 112/64 93 10/30/17 20:00 79 10/30/17 20:00 97.0 87 19 96/68 96 10/30/17 16:06 77 127/78 10/30/17 16:00 97.0 99 18 123/80 95 Room Air 10/30/17 16:00 65 10/30/17 12:00 97.3 60 18 123/77 97 Room Air 10/30/17 12:00 55 Intake and Output 10/30/17 10/31/17 19:00 07:00 # Voids 3 2 # Bowel Movements 5 3 Laboratory Tests 10/30/17 11:50: White Blood Count 8.3, Red Blood Count 3.77L, Hemoglobin 12.6L, Hematocrit 38.3L , Mean Corpuscular Volume 102H, Mean Corpuscular Hemoglobin 33.3H, Mean Corpuscular Hemoglobin Concent 32.8, Red Cell Distribution Width 11.5L, Platelet Count 268, Mean Platelet Volume 6.7, Neutrophils (%) (Auto) 48.4, Lymphocytes (%) (Auto) 26.6, Monocytes (%) (Auto) 7.3, Eosinophils (%) (Auto) 16.4H, Basophils (%) (Auto) 1.3 10/30/17 16:14: White Blood Count 8.4, Red Blood Count 3.61L, Hemoglobin 12.3L, Hematocrit 36.3L , Mean Corpuscular Volume 101H, Mean Corpuscular Hemoglobin 34.0H, Mean Corpuscular Hemoglobin Concent 33.8, Red Cell Distribution Width 11.4L, Platelet Count 285, Mean Platelet Volume 6.7, Neutrophils (%) (Auto) 47.3, Lymphocytes (%) (Auto) 27.1, Monocytes (%) (Auto) 7.4, Eosinophils (%) (Auto) 17.1H, Basophils (%) (Auto) 1.2 10/30/17 19:30: White Blood Count 10.0, Red Blood Count 3.45L, Hemoglobin 11.8L, Hematocrit 34.7L, Mean Corpuscular Volume 101H, Mean Corpuscular Hemoglobin 34.2H, Mean Corpuscular Hemoglobin Concent 34.0, Red Cell Distribution Width 11.5L, Platelet Count 300, Mean Platelet Volume 6.5, Neutrophils (%) (Auto) 44.2L, Lymphocytes (%) (Auto) 31.9, Monocytes (%) (Auto) 7.9, Eosinophils (%) (Auto) 15.2H, Basophils (%) (Auto) 0.9 10/31/17 05:20: White Blood Count 6.8, Red Blood Count 3.07L, Hemoglobin 10.7L, Hematocrit 31.2L , Mean Corpuscular Volume 102H, Mean Corpuscular Hemoglobin 34.8H, Mean Corpuscular Hemoglobin Concent 34.3, Red Cell Distribution Width 11.4L, Platelet Count 255, Mean Platelet Volume 6.3L, Neutrophils (%) (Auto) 55.0, Lymphocytes (%) (Auto) 23.1, Monocytes (%) (Auto) 7.8, Eosinophils (%) (Auto) 13.2H, Basophils (%) (Auto) 1.0, Iron Level 98, Total Iron Binding Capacity 179L , Percent Iron Saturation 55H, Unsaturated Iron Binding 81L, Vitamin B12 Level 598, Folate 5.5L Height (Feet): 5 Height (Inches): 9.00 Weight (Pounds): 211 Objective General Appearance: WD/WN, alert Neck: supple, normal inspection Cardiovascular: normal rate, regular rhythm Respiratory/Chest: chest wall non-tender, lungs clear, normal breath sounds, no respiratory distress Abdomen: normal bowel sounds, non tender, soft, no organomegaly Edema: no edema noted Arm (L), no edema noted Arm (R), no edema noted Leg (L), no edema noted Leg (R), no edema noted Pedal (L), no edema noted Pedal (R), no edema noted Generalized BABS ROBERTS Oct 31, 2017 10:00
--- NOTE | 2017-10-31 10:12 | Anethesia Preoperative Eval ---
Anesthesia Pre-op PMH/ROS General Date of Evaluation: Oct 31, 2017 Time of Evaluation: 10:02 Anesthesiologist: rian ASA Score: ASA 3 Mallampati Score Class I : Soft palate, uvula, fauces, pillars visible Class II: Soft palate, uvula, fauces visible Class III: Soft palate, base of uvula visible Class IV: Only hard plate visible Mallampati Classification: Class II Surgeon: floyd Diagnosis: gi bleed Surgical Procedure: egd/colonoscopy Anesthesia History: none Social History: smoking - nonsmoker Family History: no anesthesia problems Allergies: Coded Allergies: No Known Allergies (Unverified , 07/05/16) Medications: see eMAR Past Medical History Cardiovascular: Reports: HTN Gastrointestinal/Genitourinary: Reports: other Hematology/Immune: Reports: other - HIV Musculoskeletal/Integumentary: Reports: OA Anesthesia Pre-op Phys. Exam Physician Exam Last Vital Signs Date Time Temp Pulse Resp B/P (MAP) Pulse Ox O2 Delivery O2 Flow Rate FiO2 10/31/17 08:00 97.9 65 20 100/52 97 10/30/17 16:00 Room Air Constitutional: NAD Neurologic: CN 2-12 intact Cardiovascular: RRR Respiratory: CTA Gastrointestinal: S/NT/ND Airway Exam Mallampati Score: Class II MO: full Neck: supple TMD: 2fb ROM: limited Anesthesia Pre-op A/P Labs Hematology Test 10/30/17 11:50 10/30/17 16:14 10/30/17 19:30 10/31/17 05:20 White Blood Count 8.3 K/UL (4.8-10.8) 8.4 K/UL (4.8-10.8) 10.0 K/UL (4.8-10.8) 6.8 K/UL (4.8-10.8) Red Blood Count 3.77 M/UL (4.70-6.10) L 3.61 M/UL (4.70-6.10) L 3.45 M/UL (4.70-6.10) L 3.07 M/UL (4.70-6.10) L Hemoglobin 12.6 G/DL (14.2-18.0) L 12.3 G/DL (14.2-18.0) L 11.8 G/DL (14.2-18.0) L 10.7 G/DL (14.2-18.0) L Hematocrit 38.3 % (42.0-52.0) L 36.3 % (42.0-52.0) L 34.7 % (42.0-52.0) L 31.2 % (42.0-52.0) L Mean Corpuscular Volume 102 FL (80-99) H 101 FL (80-99) H 101 FL (80-99) H 102 FL (80-99) H Mean Corpuscular Hemoglobin 33.3 PG (27.0-31.0) H 34.0 PG (27.0-31.0) H 34.2 PG (27.0-31.0) H 34.8 PG (27.0-31.0) H Mean Corpuscular Hemoglobin Concent 32.8 G/DL (32.0-36.0) 33.8 G/DL (32.0-36.0) 34.0 G/DL (32.0-36.0) 34.3 G/DL (32.0-36.0) Red Cell Distribution Width 11.5 % (11.6-14.8) L 11.4 % (11.6-14.8) L 11.5 % (11.6-14.8) L 11.4 % (11.6-14.8) L Platelet Count 268 K/UL (150-450) 285 K/UL (150-450) 300 K/UL (150-450) 255 K/UL (150-450) Mean Platelet Volume 6.7 FL (6.5-10.1) 6.7 FL (6.5-10.1) 6.5 FL (6.5-10.1) 6.3 FL (6.5-10.1) L Neutrophils (%) (Auto) 48.4 % (45.0-75.0) 47.3 % (45.0-75.0) 44.2 % (45.0-75.0) L 55.0 % (45.0-75.0) Lymphocytes (%) (Auto) 26.6 % (20.0-45.0) 27.1 % (20.0-45.0) 31.9 % (20.0-45.0) 23.1 % (20.0-45.0) Monocytes (%) (Auto) 7.3 % (1.0-10.0) 7.4 % (1.0-10.0) 7.9 % (1.0-10.0) 7.8 % (1.0-10.0) Eosinophils (%) (Auto) 16.4 % (0.0-3.0) H 17.1 % (0.0-3.0) H 15.2 % (0.0-3.0) H 13.2 % (0.0-3.0) H Basophils (%) (Auto) 1.3 % (0.0-2.0) 1.2 % (0.0-2.0) 0.9 % (0.0-2.0) 1.0 % (0.0-2.0) Chemistry Test 10/31/17 05:20 Iron Level 98 ug/dL (50-175) Total Iron Binding Capacity 179 ug/dL (250-450) L Percent Iron Saturation 55 % (15-50) H Unsaturated Iron Binding 81 ug/dL (112-346) L Vitamin B12 Level 598 PG/ML (193-986) Folate 5.5 NG/ML (8.6-58.9) L Studies Pre-op Studies: EKG - sinus bradycardia Risk Assessment & Plan Assessment: asa3 Plan: mac Status Change Before Surgery: No Pre-Antibiotics Drug: AYANA Joseph Oct 31, 2017 10:12
[2017-10-31] MEDS: D5NS 1,000 ML IV SCH (13:30)
[2017-10-31] MEDS ORDERED: Lidocaine 1% MPF 10mg/ml 5ml ONE ×2 (13:30→14:30)
[2017-10-31] MEDS ORDERED: Propofol 200mg/20ml IV ONE ×2 (13:30→14:30)
[2017-10-31] MEDS ORDERED: Midazolam 2mg/2ml Inj IVP PRN (13:45)
[2017-10-31] MEDS ORDERED: NS 500ML IV ONE (13:45)
[2017-10-31] MEDS ORDERED: DiphenhydrAMINE 50mg/ml Inj IVP PRN (13:45)
[2017-10-31] MEDS ORDERED: Atropine Inj 1mg/10ml Syr IV PRN (13:45)
[2017-10-31] MEDS ORDERED: fentaNYL 100 mcg/2 mL IV PRN (13:45)
--- NOTE | 2017-10-31 13:45 | Pre-Procedure Note/Attestation ---
Pre-Procedure Note/Attestation Complete Prior to Procedure Planned Procedure: not applicable Procedure Narrative: esophagogastroduodenoscopy colon Indications for Procedure Pre-Operative Diagnosis: gib Attestation I attest that I discussed the nature of the procedure; its benefits; risks and complications; and alternatives (and the risks and benefits of such alternatives ), prior to the procedure, with the patient (or the patient's legal guest experience representative). I attest that, if there was a reasonable possibility of needing a blood transfusion, the patient (or the patient's legal guest experience representative) was given the [facility] standardized written summary, pursuant to the August Tanya Blood Safety Act ([place] Health and Safety Code # 1645, as amended). I attest that I re-evaluated the patient just prior to the surgery and that there has been no change in the patient's H&P, except as documented below: SHASHI MARTINEZ Oct 31, 2017 13:45
--- NOTE | 2017-10-31 14:25 | General Progress Note ---
Assessment/Plan Assessment/Plan Assessment - Hematochezia - Diverticulosis - Macrocytic anemia with mildly depressed folate - HIV (+) - Transient elevated Lipase Recommendations - Replace folate - EGD/colon today - Monitor CBC - transfuse PRN POST PROCEDURE EGD: Erosive antrum gastritis Colon Ching-colonic diverticulosis , no active bleeding, mild hemorrhoids Subjective Allergies: Coded Allergies: No Known Allergies (Unverified , 07/05/16) Subjective Feels OK BM no longer bloody NPO for EGD/Colon Objective Last 24 Hour Vital Signs Date Time Temp Pulse Resp B/P (MAP) Pulse Ox O2 Delivery O2 Flow Rate FiO2 10/31/17 12:00 97.7 84 20 105/62 97 10/31/17 11:55 82 10/31/17 08:00 97.9 65 20 100/52 97 10/31/17 04:00 88 10/31/17 04:00 98.0 86 18 104/72 100 10/31/17 00:00 79 10/31/17 00:00 97.2 73 18 112/64 93 10/30/17 20:00 79 10/30/17 20:00 97.0 87 19 96/68 96 10/30/17 16:06 77 127/78 10/30/17 16:00 97.0 99 18 123/80 95 Room Air 10/30/17 16:00 65 Intake and Output 10/30/17 10/31/17 19:00 07:00 # Voids 3 2 # Bowel Movements 5 3 Laboratory Tests 10/30/17 16:14: White Blood Count 8.4, Red Blood Count 3.61L, Hemoglobin 12.3L, Hematocrit 36.3L , Mean Corpuscular Volume 101H, Mean Corpuscular Hemoglobin 34.0H, Mean Corpuscular Hemoglobin Concent 33.8, Red Cell Distribution Width 11.4L, Platelet Count 285, Mean Platelet Volume 6.7, Neutrophils (%) (Auto) 47.3, Lymphocytes (%) (Auto) 27.1, Monocytes (%) (Auto) 7.4, Eosinophils (%) (Auto) 17.1H, Basophils (%) (Auto) 1.2 10/30/17 19:30: White Blood Count 10.0, Red Blood Count 3.45L, Hemoglobin 11.8L, Hematocrit 34.7L, Mean Corpuscular Volume 101H, Mean Corpuscular Hemoglobin 34.2H, Mean Corpuscular Hemoglobin Concent 34.0, Red Cell Distribution Width 11.5L, Platelet Count 300, Mean Platelet Volume 6.5, Neutrophils (%) (Auto) 44.2L, Lymphocytes (%) (Auto) 31.9, Monocytes (%) (Auto) 7.9, Eosinophils (%) (Auto) 15.2H, Basophils (%) (Auto) 0.9 10/31/17 05:20: White Blood Count 6.8, Red Blood Count 3.07L, Hemoglobin 10.7L, Hematocrit 31.2L , Mean Corpuscular Volume 102H, Mean Corpuscular Hemoglobin 34.8H, Mean Corpuscular Hemoglobin Concent 34.3, Red Cell Distribution Width 11.4L, Platelet Count 255, Mean Platelet Volume 6.3L, Neutrophils (%) (Auto) 55.0, Lymphocytes (%) (Auto) 23.1, Monocytes (%) (Auto) 7.8, Eosinophils (%) (Auto) 13.2H, Basophils (%) (Auto) 1.0, Iron Level 98, Total Iron Binding Capacity 179L , Percent Iron Saturation 55H, Unsaturated Iron Binding 81L, Vitamin B12 Level 598, Folate 5.5L Height (Feet): 5 Height (Inches): 9.00 Weight (Pounds): 211 Objective WDWN LM NCAT supple CTA RRR Abd soft NT no edema non focal SHASHI MARTINEZ Oct 31, 2017 14:25
[2017-10-31] MEDS ORDERED: NS Irrig 1000ml ONE (14:30)
--- NOTE | 2017-10-31 16:11 | Immediate Post-Op Evaluation ---
Immediate Post-Op Evalulation Immediate Post-Op Evalulation Procedure: egd/colonoscopy Date of Evaluation: Oct 31, 2017 Time of Evaluation: 14:37 IV Fluids: 0.9ns 375ml Blood Products: none Estimated Blood Loss: negligible Blood Pressure Systolic: 113 Blood Pressure Diastolic: 74 Pulse Rate: 73 Respiratory Rate: 18 O2 Sat by Pulse Oximetry: 99 Temperature (Fahrenheit): 97.3 Pain Score (1-10): 0 Nausea: No Vomiting: No Complications none Patient Status: awake, reacts, patent Hydration Status: adequate Drug: AYANA Joseph Oct 31, 2017 16:11
--- NOTE | 2017-10-31 16:13 | 48 Hour Post Anesthesia Eval ---
Post Anesthesia Evaluation Procedure: egd/colonoscopy Date of Evaluation: Oct 31, 2017 Time of Evaluation: 14:39 Blood Pressure Systolic: 119 0: 70 Pulse Rate: 63 Respiratory Rate: 18 Temperature (Fahrenheit): 97.3 O2 Sat by Pulse Oximetry: 99 Airway: patent Nausea: No Vomiting: No Pain Intensity: 0 Hydration Status: adequate Cardiopulmonary Status: stable Mental Status/LOC: patient returned to baseline Post-Anesthesia Complications: none Follow-up care needed: N/A AYANA DEL ROSARIO Oct 31, 2017 16:13
--- NOTE | 2017-10-31 19:39 | Endoscopy Procedure Note ---
Endoscopy Procedure Note Indication for Procedure: gib Procedures Performed: EGD, colonoscopy Operative Findings/Diagnosis: EGD: Erosive antrum gastritis , pancolonic tics , rhoids Specimen: yes Pt Tolerated Procedure Well: Yes Estimated Blood Loss: none Anesthesiologist: Yasmine Santos Anesthesia: MAC Medication Given: see anesthesia record Implant(s) used?: No 50 yrs or older w/o bx or poly: Not Applicable 10yrs. F/U not recommended: Not Applicable If not recommended, why?: SHASHI MARTINEZ Oct 31, 2017 19:39
--- NOTE | 2017-10-31 19:40 | Brief Operative Note ---
Immediate Post Operative Note Operative Note Chief Complaint: gib Pre-op Diagnosis: gib Procedure: esophagogastroduodenoscopybx, colon, Post-op Diagnosis: EGD: Erosive antrum gastritis Colon Ching-colonic diverticulosis , no active bleeding, mild hemorrhoids Surgeon: floyd Anesthesiologist: Yasmine hooper Anesthesia: MAC Specimen: yes Complications: none Condition: stable Fluids: recorded Estimated Blood Loss: none Drains: none Implant(s) used?: No SHASHI MARTINEZ Oct 31, 2017 19:40
[2017-11-01] VITALS: BP_SYST 103; BP_SYST 115; BP_DIAS 61; BP_DIAS 71
--- NOTE | 2017-11-01 01:30 | Procedure Note ---
DATE OF PROCEDURE: 10/31/2017 PROCEDURE: Upper gastrointestinal endoscopy with biopsy as well as colonoscopy. SURGEON: Geneva Jesus M.D. ANESTHESIA: Please see the separate anesthesiologist notes for details. PRE-ENDOSCOPIC DIAGNOSIS: Gastrointestinal bleeding. POST-ENDOSCOPIC DIAGNOSES: 1. Erosive gastritis in the antrum. 2. Pancolonic diverticulosis. 3. Mild internal hemorrhoids. 4. No evidence of bleeding. DESCRIPTION OF PROCEDURE: The procedure, its risks, indications, alternatives, and possible complications were explained and informed consent was obtained. Diagnostic upper endoscope was introduced through the oropharynx and advanced to the duodenum. The endoscope was withdrawn and the mucosa was examined carefully. The colonoscope was then introduced in the rectum after rectal exam was done and advanced to 7 cm into the terminal ileum. The colonoscope was gradually withdrawn and the mucosa was examined carefully. Examination of the upper gastric mucosa revealed erosive antrum gastritis, which was biopsied. No active bleeding was identified. In the colon, there was noted diffuse colonic diverticulosis throughout the colon. The terminal ileum was normal and there were mild internal hemorrhoids. There was no bleeding or blood seen anywhere in the gastrointestinal tract. The colonoscopy was removed and the patient was sent to recovery in good condition. COMPLICATIONS: None. RECOMMENDATIONS: 1. Resume oral diet. 2. Follow up CBC. 3. High-fiber intake and long-term bowel regimen. Geneva Jesus M.D. DR: Richi JOB#: [id number] CC:
[2017-11-01] MEDS: D5NS 1,000 ML IV SCH ×2 (02:30→16:11)
[2017-11-01 04:00] VITALS: BP 115/71
[2017-11-01] MEDS: Piperacillin/Tazobactam 3.375 GM in NS 110 ML IVPB SCH ×3 (07:02→22:04)
[2017-11-01 08:00] VITALS: BP 117/72
[2017-11-01] MEDS: Pantoprazole Inj IVP SCH ×2 (08:28→20:55)
[2017-11-01 12:00] VITALS: BP 120/71
[2017-11-01 13:35] LABS: BASOPHILS % (AUTO) 1.4 % (0.0-2.0); EOSINOPHILS % (AUTO) 15.2 % (0.0-3.0); HEMATOCRIT 24.3 % (42.0-52.0); HEMOGLOBIN 8.5 G/DL (14.2-18.0); LYMPHOCYTES % (AUTO) 33.1 % (20.0-45.0); MEAN CORPUSCULAR VOLUME 102 FL (80-99); NEUTROPHILS % (AUTO) 43.3 % (45.0-75.0); PLATELET COUNT 245 K/UL (150-450); RED BLOOD COUNT 2.38 M/UL (4.70-6.10); RED CELL DISTRIBUTION WIDTH 11.6 % (11.6-14.8); WHITE BLOOD COUNT 7.6 K/UL (4.8-10.8)
--- NOTE | 2017-11-01 15:30 | Discharge Summary ---
DATE OF ADMISSION: 10/29/2017 DATE OF DISCHARGE: 11/01/2017 ADMISSION DIAGNOSES: 1. Gastrointestinal bleed. 2. History of human immunodeficiency virus. 3. History of osteoarthritis. DISCHARGE DIAGNOSES: 1. Gastrointestinal bleed. 2. History of human immunodeficiency virus. 3. History of osteoarthritis. 4. Gastritis and diverticulosis. HOSPITAL COURSE: The patient is a pleasant male admitted with complaints of rectal bleeding. He had multiple episodes of rectal bleeding. His hemoglobin remained mostly stable. His aspirin and ibuprofen were held. He underwent upper endoscopy that showed gastritis and a lower endoscopy which showed diverticulosis without any active bleeding. The patient will be discharged home on PPI treatment. He can resume his aspirin, but he needs to monitor bleeding. He was instructed to discontinue all NSAIDs. The patient will follow up with his PMD in one to two weeks. DIET: Regular diet. ACTIVITIES: Ad-theodore. Anish Soliman M.D. DR: SUKH JOB#: [id number] CC:
[2017-11-01 16:00] VITALS: BP 120/68
[2017-11-01 20:00] VITALS: BP 118/58
--- NOTE | 2017-11-01 21:10 | General Progress Note ---
Assessment/Plan Assessment/Plan Assessment - Hematochezia - Diverticulosis - Macrocytic anemia with mildly depressed folate - HIV (+) - Transient elevated Lipase Recommendations - Replace folate - push PO - Monitor CBC - transfuse PRN Subjective Allergies: Coded Allergies: No Known Allergies (Unverified , 07/05/16) Subjective Feels OK BM no longer bloody tolerating PO for discharge today Objective Last 24 Hour Vital Signs Date Time Temp Pulse Resp B/P (MAP) Pulse Ox O2 Delivery O2 Flow Rate FiO2 11/01/17 20:00 98.0 87 20 118/58 97 Room Air 11/01/17 16:00 79 11/01/17 16:00 97.0 18 120/68 95 Room Air 11/01/17 12:00 97.2 18 120/71 95 Room Air 11/01/17 12:00 98 11/01/17 08:00 84 11/01/17 08:00 97.5 18 117/72 97 Room Air 11/01/17 08:00 98.1 11/01/17 04:00 65 11/01/17 04:00 98.1 20 115/71 97 11/01/17 00:00 62 11/01/17 00:00 97.9 18 103/61 98 Intake and Output 10/31/17 11/01/17 19:00 07:00 Intake Total 1525 ml Balance 1525 ml Intake Oral 600 ml IV Total 925 ml # Voids 1 2 # Bowel Movements 2 2 Laboratory Tests 11/01/17 13:00: White Blood Count 7.6, Red Blood Count 2.38L, Hemoglobin 8.5L, Hematocrit 24.3L , Mean Corpuscular Volume 102H, Mean Corpuscular Hemoglobin 35.8H, Mean Corpuscular Hemoglobin Concent 35.1, Red Cell Distribution Width 11.6, Platelet Count 245, Mean Platelet Volume 6.6, Neutrophils (%) (Auto) 43.3L, Lymphocytes ( %) (Auto) 33.1, Monocytes (%) (Auto) 7.0, Eosinophils (%) (Auto) 15.2H, Basophils (%) (Auto) 1.4 Height (Feet): 5 Height (Inches): 9.00 Weight (Pounds): 211 Objective WDWN LM NCAT supple CTA RRR Abd soft NT no edema non focal SHASHI MARTINEZ Nov 01, 2017 21:10
[2017-11-02] VITALS: BP 104/56
[2017-11-02 04:00] VITALS: BP 117/62
[2017-11-02] MEDS: D5NS 1,000 ML IV SCH ×2 (04:50→18:18)
[2017-11-02] MEDS: Piperacillin/Tazobactam 3.375 GM in NS 110 ML IVPB SCH ×3 (05:53→22:03)
[2017-11-02 08:07] VITALS: BP 126/61
--- NOTE | 2017-11-02 08:25 | General Progress Note ---
Assessment/Plan Problem List: (1) Diverticulitis ICD Codes: K57.92 - Diverticulitis of intestine, part unspecified, without perforation or abscess without bleeding SNOMED: 315448938 (2) Diverticulosis ICD Codes: K57.90 - Diverticulosis of intestine, part unspecified, without perforation or abscess without bleeding SNOMED: 66886648 Qualifiers: Qualified Codes: K57.31 - Diverticulosis of large intestine without perforation or abscess with bleeding (3) Hemorrhoid ICD Codes: K64.9 - Unspecified hemorrhoids SNOMED: 34278601 Qualifiers: Qualified Codes: K64.0 - First degree hemorrhoids (4) Lower GI bleeding ICD Codes: K92.2 - Gastrointestinal hemorrhage, unspecified SNOMED: 29442998 Status: stable, progressing Assessment/Plan IV abx repeat cbc this am observe if no further bleeding dc later this afternoon Subjective Constitutional: Reports: no symptoms HEENT: Reports: no symptoms Cardiovascular: Reports: no symptoms Respiratory: Reports: no symptoms Gastrointestinal/Abdominal: Reports: blood in stool Genitourinary: Reports: no symptoms Neurologic/Psychiatric: Reports: no symptoms Endocrine: Reports: no symptoms Hematologic/Lymphatic: Reports: anemia Allergies: Coded Allergies: No Known Allergies (Unverified , 07/05/16) All Systems: reviewed and negative except above Subjective dc held yesterday due to 3 BRBPR. hgb decreased to 8.5 no bleeding since yesterday Objective Last 24 Hour Vital Signs Date Time Temp Pulse Resp B/P (MAP) Pulse Ox O2 Delivery O2 Flow Rate FiO2 11/02/17 08:07 97.7 96 20 126/61 97 Room Air 11/02/17 04:00 73 11/02/17 04:00 97.2 73 20 117/62 94 Room Air 11/02/17 00:00 97.2 96 20 104/56 96 Room Air 11/02/17 00:00 75 11/01/17 20:00 73 11/01/17 20:00 98.0 87 20 118/58 97 Room Air 11/01/17 16:00 79 11/01/17 16:00 97.0 18 120/68 95 Room Air 11/01/17 12:00 97.2 18 120/71 95 Room Air 11/01/17 12:00 98 Intake and Output 11/01/17 11/02/17 19:00 07:00 Intake Total 360 ml 978.8 ml Output Total 750 ml 950 ml Balance -390 ml 28.8 ml Intake Oral 360 ml IV Total 978.8 ml Output Urine Total 750 ml 950 ml # Voids 1 3 # Bowel Movements 2 Laboratory Tests 11/01/17 13:00: White Blood Count 7.6, Red Blood Count 2.38L, Hemoglobin 8.5L, Hematocrit 24.3L , Mean Corpuscular Volume 102H, Mean Corpuscular Hemoglobin 35.8H, Mean Corpuscular Hemoglobin Concent 35.1, Red Cell Distribution Width 11.6, Platelet Count 245, Mean Platelet Volume 6.6, Neutrophils (%) (Auto) 43.3L, Lymphocytes ( %) (Auto) 33.1, Monocytes (%) (Auto) 7.0, Eosinophils (%) (Auto) 15.2H, Basophils (%) (Auto) 1.4 Height (Feet): 5 Height (Inches): 9.00 Weight (Pounds): 211 Objective General Appearance: WD/WN, alert Neck: supple, normal inspection Cardiovascular: normal rate, regular rhythm Respiratory/Chest: chest wall non-tender, lungs clear, normal breath sounds, no respiratory distress Abdomen: normal bowel sounds, non tender, soft, no organomegaly Edema: no edema noted Arm (L), no edema noted Arm (R), no edema noted Leg (L), no edema noted Leg (R), no edema noted Pedal (L), no edema noted Pedal (R), no edema noted Generalized BABS ROBERTS Nov 02, 2017 08:24
[2017-11-02] MEDS: Pantoprazole Inj IVP SCH ×2 (08:27→20:46)
[2017-11-02 08:42] LABS: EOSINOPHILS % (AUTO) 15.9 % (0.0-3.0); HEMATOCRIT 23.5 % (42.0-52.0); MEAN CORPUSCULAR VOLUME 102 FL (80-99); MONOCYTES % (AUTO) 6.1 % (1.0-10.0); NEUTROPHILS % (AUTO) 46.1 % (45.0-75.0); PLATELET COUNT 243 K/UL (150-450); RED CELL DISTRIBUTION WIDTH 11.8 % (11.6-14.8); WHITE BLOOD COUNT 7.2 K/UL (4.8-10.8)
[2017-11-02 12:00] VITALS: BP 109/52
[2017-11-02 16:00] VITALS: BP 118/67
[2017-11-02 20:00] VITALS: BP 126/77
--- NOTE | 2017-11-02 22:01 | General Progress Note ---
Assessment/Plan Assessment/Plan Assessment - Hematochezia - Diverticulosis - Macrocytic anemia with mildly depressed folate - HIV (+) - Transient elevated Lipase Recommendations - Replace folate - push PO - Monitor CBC - transfuse PRN Subjective Allergies: Coded Allergies: No Known Allergies (Unverified , 07/05/16) Subjective Feels OK tolerating PO no hematochezia Objective Last 24 Hour Vital Signs Date Time Temp Pulse Resp B/P (MAP) Pulse Ox O2 Delivery O2 Flow Rate FiO2 11/02/17 20:00 99.5 78 20 126/77 99 Room Air 11/02/17 20:00 76 11/02/17 16:00 75 11/02/17 16:00 97.5 75 20 118/67 98 Room Air 11/02/17 12:00 72 11/02/17 12:00 98.2 98 20 109/52 98 Room Air 11/02/17 08:07 97.7 96 20 126/61 97 Room Air 11/02/17 08:00 84 11/02/17 04:00 73 11/02/17 04:00 97.2 73 20 117/62 94 Room Air 11/02/17 00:00 97.2 96 20 104/56 96 Room Air 11/02/17 00:00 75 Intake and Output 11/01/17 11/02/17 19:00 07:00 Intake Total 360 ml 978.8 ml Output Total 750 ml 950 ml Balance -390 ml 28.8 ml Intake Oral 360 ml IV Total 978.8 ml Output Urine Total 750 ml 950 ml # Voids 1 3 # Bowel Movements 2 Laboratory Tests 11/02/17 08:25: White Blood Count 7.2, Red Blood Count 2.30L, Hemoglobin 8.0L, Hematocrit 23.5L , Mean Corpuscular Volume 102H, Mean Corpuscular Hemoglobin 34.9H, Mean Corpuscular Hemoglobin Concent 34.1, Red Cell Distribution Width 11.8, Platelet Count 243, Mean Platelet Volume 6.2L, Neutrophils (%) (Auto) 46.1, Lymphocytes ( %) (Auto) 31.0, Monocytes (%) (Auto) 6.1, Eosinophils (%) (Auto) 15.9H, Basophils (%) (Auto) 1.0 Height (Feet): 5 Height (Inches): 9.00 Weight (Pounds): 211 Objective WDWN LM NCAT supple CTA RRR Abd soft NT no edema non focal SHASHI MARTINEZ Nov 02, 2017 22:01
[2017-11-03] VITALS: BP 112/62
[2017-11-03 04:00] VITALS: BP 112/70
[2017-11-03] MEDS: Piperacillin/Tazobactam 3.375 GM in NS 110 ML IVPB SCH (06:00)
[2017-11-03] MEDS: D5NS 1,000 ML IV SCH (06:00)
[2017-11-03 07:31] LABS: BASOPHILS % (AUTO) 1.4 % (0.0-2.0); EOSINOPHILS % (AUTO) 17.4 % (0.0-3.0); HEMATOCRIT 25.3 % (42.0-52.0); HEMOGLOBIN 8.7 G/DL (14.2-18.0); LYMPHOCYTES % (AUTO) 32.9 % (20.0-45.0); MEAN CORPUSCULAR VOLUME 100 FL (80-99); MONOCYTES % (AUTO) 6.6 % (1.0-10.0); NEUTROPHILS % (AUTO) 41.7 % (45.0-75.0); PLATELET COUNT 237 K/UL (150-450); RED BLOOD COUNT 2.54 M/UL (4.70-6.10); RED CELL DISTRIBUTION WIDTH 13.4 % (11.6-14.8); WHITE BLOOD COUNT 7.6 K/UL (4.8-10.8)
[2017-11-03 08:00] VITALS: BP 131/75
[2017-11-03] MEDS: Pantoprazole Inj IVP SCH (08:06)
--- NOTE | 2017-11-03 09:16 | General Progress Note ---
Assessment/Plan Problem List: (1) Diverticulitis ICD Codes: K57.92 - Diverticulitis of intestine, part unspecified, without perforation or abscess without bleeding SNOMED: 891677902 (2) Diverticulosis ICD Codes: K57.90 - Diverticulosis of intestine, part unspecified, without perforation or abscess without bleeding SNOMED: 07179801 Qualifiers: Qualified Codes: K57.31 - Diverticulosis of large intestine without perforation or abscess with bleeding (3) Hemorrhoid ICD Codes: K64.9 - Unspecified hemorrhoids SNOMED: 12895173 Qualifiers: Qualified Codes: K64.0 - First degree hemorrhoids (4) Lower GI bleeding ICD Codes: K92.2 - Gastrointestinal hemorrhage, unspecified SNOMED: 16834882 Status: stable, progressing Assessment/Plan dc planning today pt instructed to return for any bleeding. also instructed to see his pmd monday for follow up labs Subjective ROS Limited/Unobtainable: No Constitutional: Reports: malaise, weakness HEENT: Reports: no symptoms Cardiovascular: Reports: no symptoms Respiratory: Reports: no symptoms Gastrointestinal/Abdominal: Reports: no symptoms Genitourinary: Reports: no symptoms Neurologic/Psychiatric: Reports: no symptoms Endocrine: Reports: no symptoms Hematologic/Lymphatic: Reports: anemia Allergies: Coded Allergies: No Known Allergies (Unverified , 07/05/16) All Systems: reviewed and negative except above Subjective s/p 1 unit prbcs. no more bleeding noted, w/o complaints. Objective Last 24 Hour Vital Signs Date Time Temp Pulse Resp B/P (MAP) Pulse Ox O2 Delivery O2 Flow Rate FiO2 11/03/17 08:00 76 11/03/17 08:00 98.4 69 20 131/75 98 Room Air 11/03/17 04:00 72 11/03/17 04:00 98.1 68 20 112/70 98 Room Air 11/03/17 00:00 98.6 74 20 112/62 95 Room Air 11/03/17 00:00 64 11/02/17 20:00 99.5 78 20 126/77 99 Room Air 11/02/17 20:00 76 11/02/17 16:00 75 11/02/17 16:00 97.5 75 20 118/67 98 Room Air 11/02/17 12:00 72 11/02/17 12:00 98.2 98 20 109/52 98 Room Air Intake and Output 11/02/17 11/03/17 19:00 07:00 Intake Total 1215 ml 1089.0 ml Output Total 1550 ml 1000 ml Balance -335 ml 89.0 ml Intake Oral 840 ml IV Total 375 ml 1089.0 ml Output Urine Total 1550 ml 1000 ml # Voids 2 Laboratory Tests 11/03/17 06:00: White Blood Count 7.6, Red Blood Count 2.54L, Hemoglobin 8.7L, Hematocrit 25.3L , Mean Corpuscular Volume 100H, Mean Corpuscular Hemoglobin 34.4H, Mean Corpuscular Hemoglobin Concent 34.5, Red Cell Distribution Width 13.4, Platelet Count 237, Mean Platelet Volume 6.0L, Neutrophils (%) (Auto) 41.7L, Lymphocytes (%) (Auto) 32.9, Monocytes (%) (Auto) 6.6, Eosinophils (%) (Auto) 17.4H, Basophils (%) (Auto) 1.4 Height (Feet): 5 Height (Inches): 9.00 Weight (Pounds): 211 Objective General Appearance: WD/WN, alert Neck: supple, normal inspection Cardiovascular: normal rate, regular rhythm Respiratory/Chest: chest wall non-tender, lungs clear, normal breath sounds, no respiratory distress Abdomen: normal bowel sounds, non tender, soft, no organomegaly Edema: no edema noted Arm (L), no edema noted Arm (R), no edema noted Leg (L), no edema noted Leg (R), no edema noted Pedal (L), no edema noted Pedal (R), no edema noted Generalized BABS ROBERTS Nov 03, 2017 09:16
[2017-11-03 12:09] VITALS: BP 109/67
[2017-11-03] MEDS ORDERED: Tubing IV Secondary IV ONE (12:14)
[2017-11-03] MEDS ORDERED: D5NS 1000ml IV ONE (12:14)
--- NOTE | 2017-11-13 14:03 | Cardiology Report ---
APPROVED REPORT EKG Measurement Heart [id number] MI [id number] Sinus bradycardia with sinus arrhythmia Otherwise normal ECG
== END 2017-11-03 12:15 | disposition home or self-care (01) | DRG 377 ==
LOC: EMR 17:00 → 2E 17:39 → EDBEDREQ 17:44 → EDBEDREQSVC 17:44 → EDBEDREQ 20:24
DX: K92.2 Gastrointestinal hemorrhage, unspecified (principal); B20 Human immunodeficiency virus [HIV] disease; K92.1 Melena; K29.60 Other gastritis without bleeding; M19.90 Unspecified osteoarthritis, unspecified site; K57.90 Diverticulosis of intestine, part unspecified, without perforation or abscess without bleeding; K64.8 Other hemorrhoids; D50.9 Iron deficiency anemia, unspecified
CPT/HCPCS: 36415; 71045; 74177; 80053; 81003; 82550; 82607; 82746; 83540; 83550; 83690; 84484; 85025; 85610; 85730; 86850; 86900; 86901; 86920; 93005; 94003; 94150; 99285

== ENCOUNTER 2018-12-28 22:24 | Inpatient (IN) | payer MEDICARE, OTHER ==
[~2018-12-28] VITALS: Ht 167.6 cm; Wt 93.1 kg
[~2018-12-28 22:24] MED LIST changes: +ASPIR 8181 MG ORAL; +ATENOLOL50 MG ORAL; +ATRIPLA TABLET1 EAC1 ORAL; +BACLOFEN10 MG ORAL; +CAPSAICIN60 GM TP; +DIPHENHYDRAMINE25 M1 ORAL; +FLUOCINONIDE-E15 G1 TP; +LORATADINE10 M3 PO
[2018-12-28] MEDS ORDERED: TAMSULOSIN HCL0.4 MG ORAL (22:39)
[2018-12-28] MEDS ORDERED: ATORVASTATIN CA20 MG ORAL (22:39)
[2018-12-28 23:00] VITALS: BP 132/80
--- NOTE | 2018-12-28 23:00 | NUR ---
ED Nurse Note: received pt from triage, pt brought in by daughter c/o blood in stool, pt states he had 10BM diarrhea since 8pm and noted blood in it. PT had another BM in triage. Noted dark red blood with stool and blood clots, ERMD at the bedside. PT AA&ox4, gcs=15, skin pale, warm and dry, resp even and unlabored on RA, abd soft nontender, will cont monitor. VSS. NSR on quality assurance monitor chassis.
[2018-12-28 23:20] LABS: EOSINOPHILS % (AUTO) 11.6 % (0.0-3.0); HEMATOCRIT 41.6 % (42.0-52.0); LYMPHOCYTES % (AUTO) 28.1 % (20.0-45.0); MEAN CORPUSCULAR VOLUME 97 FL (80-99); MONOCYTES % (AUTO) 7.9 % (1.0-10.0); NEUTROPHILS % (AUTO) 51.4 % (45.0-75.0); PLATELET COUNT 353 K/UL (150-450); RED BLOOD COUNT 4.29 M/UL (4.70-6.10); RED CELL DISTRIBUTION WIDTH 13.2 % (11.6-14.8); WHITE BLOOD COUNT 15.7 K/UL (4.8-10.8)
--- NOTE | 2018-12-28 23:30 | NUR ---
ED Nurse Note: pt cleaned and changed, bm x2, NSR on sheet finisher, vss, resp even and unlabored on RA, daughter at the bedside.
[2018-12-28 23:37] LABS: ANION GAP 9 mmol/L (5-15); BLOOD UREA NITROGEN 18 mg/dL (7-18); CALCIUM 9.4 MG/DL (8.5-10.1); CARBON DIOXIDE 27 MMOL/L (21-32); CHLORIDE 103 MMOL/L (98-107); CREATININE 1.2 MG/DL (0.55-1.30); POTASSIUM 4.3 MMOL/L (3.5-5.1); SODIUM 139 MMOL/L (136-145)
[2018-12-28 23:48] LABS: INR 0.9 (0.9-1.1)
[2018-12-29] VITALS (8 sets, daily range): BP systolic 96–142; BP diastolic 55–91
--- NOTE | 2018-12-29 01:06 | Emergency Room Report ---
History of Present Illness General Chief Complaint: Gastrointestinal Bleed Source: Patient, Medical Record Present Illness HPI This is a 68-year-old male with a history of high blood pressure and diverticulosis. He presents with chief complaint of rectal bleeding. Onset was acute. He had diffuse bleeding at home. There were at least 10 episodes. He continue to bleed here in the ER neck she had a syncopal episode. No trauma. No fever chills. No nausea no vomiting. No alcohol use. No NSAID use. Currently not on aspirin or anticoagulation. Allergies: Coded Allergies: No Known Allergies (Unverified , 07/05/16) Patient History Past Medical History: see triage record, old chart reviewed Past Surgical History: other Pertinent Family History: none Social History: Denies: smoking Immunizations: other Reviewed Nursing Documentation: PMH: Agreed; PSxH: Agreed Nursing Documentation-PMH Hx Hypertension: Yes Hx Diabetes: Yes Hx Cerebrovascular Accident: Yes - left hemiphlegia Review of Systems Eye: Denies: eye pain, blurred vision ENT: Denies: ear pain, nose congestion, throat swelling Respiratory: Denies: cough, shortness of breath Cardiovascular: Denies: chest pain, palpitations Gastrointestinal: Reports: diarrhea; Denies: abdominal pain, nausea, vomiting Musculoskeletal: Denies: back pain, joint pain Skin: Denies: rash Neurological: Denies: headache, numbness Endocrine: Denies: increased thirst, increased urine Hematologic/Lymphatic: Denies: easy bruising All Other Systems: negative except mentioned in HPI Physical Exam Vital Signs Date Time Temp Pulse Resp B/P (MAP) Pulse Ox O2 Delivery O2 Flow Rate FiO2 12/28/18 22:30 98.2 115 16 134/88 94 Room Air vitals with tachycardia Sp02 EP Interpretation: reviewed, normal General Appearance: well appearing, no apparent distress, alert Head: normocephalic, atraumatic Eyes: bilateral eye PERRL, bilateral eye EOMI ENT: hearing grossly normal, normal pharynx Neck: full range of motion, supple, no meningismus Respiratory: chest non-tender, lungs clear, normal breath sounds Cardiovascular #1: regular rate, rhythm, no murmur Gastrointestinal: normal bowel sounds, non tender, no mass, no organomegaly, no bruit, non-distended Rectal: other - Large hemorrhoid. Venous color blood. No melena Musculoskeletal: back normal, gait/station normal, normal range of motion Neurologic: alert, oriented x3 Psychiatric: mood/affect normal Skin: warm/dry Medical Decision Making Diagnostic Impression: Primary Impression: Acute lower GI bleeding Additional Impression: Diverticulosis ER Course Patient presents with acute lower GI bleeding. He was admitted here last year and had colonoscopy that showed severe diverticulosis. Initial hemoglobin is stable. No evidence of ACS, PE, dissection. He did have a syncopal episode probably from acute blood loss. On initial presentation, I thought that he may have some bleeding from the large hemorrhoid. I injected some 1% lidocaine with epinephrine and place couple sutures. He continue have rectal bleeding but much less. I discussed case with Dr. Santana who will admit for Dr. Soliman. Lab Results Impression labs with leukocytosis EKG Diagnostic Results Rate: normal Rhythm: NSR ST Segments: no acute changes Rhythm Strip Diag. Results EP Interpretation: yes Rate: 93 Rhythm: NSR, no PVC's, no ectopy Chest X-Ray Diagnostic Results Chest X-Ray Diagnostic Results : Chest X-Ray Ordered: Yes # of Views/Limited/Complete: 1 View Indication: Chest Pain EP Interpretation: Yes Interpretation: no consolidation, no effusion, no pneumothorax, no acute cardiopulmonary disease Impression: No acute disease Electronically Signed by: Taz Valdez MD Last Vital Signs Date Time Temp Pulse Resp B/P (MAP) Pulse Ox O2 Delivery O2 Flow Rate FiO2 12/28/18 22:30 98.2 115 16 134/88 94 Room Air Status: improved Disposition: ADMITTED INPATIENT Condition: Serious Referrals: NON PHYSICIAN (PCP) Taz Valdez MD Dec 29, 2018 01:06
--- NOTE | 2018-12-29 01:06 | NUR ---
ED Nurse Note: pt daughter left phone number in case the pt will be discharge. rayshawn [phone]
--- NOTE | 2018-12-29 01:20 | NUR ---
ED Nurse Note: ERMD notified regarding pt's condition, pt had BM x 5 diarrhea and blood in stool.
--- NOTE | 2018-12-29 01:55 | NUR ---
ED Nurse Note: received verbal order redraw CBC from ERMD, redraw CBC sent.
[2018-12-29 02:01] LABS: APPEARANCE,URINE CLEAR; BASOPHILS % (AUTO) 0.6 % (0.0-2.0); BILIRUBIN, URINE NEGATIVE (NEGATIVE); COLOR,URINE PALE YELLOW; EOSINOPHILS % (AUTO) 5.6 % (0.0-3.0); GLUCOSE, URINE (UA) NEGATIVE (NEGATIVE); HEMATOCRIT 36.8 % (42.0-52.0); HEMOGLOBIN 12.3 G/DL (14.2-18.0); KETONES,URINE NEGATIVE (NEGATIVE); LEUKOCYTE ESTERASE ,URINE NEGATIVE (NEGATIVE); LYMPHOCYTES % (AUTO) 11.1 % (20.0-45.0); MEAN CORPUSCULAR VOLUME 98 FL (80-99); MONOCYTES % (AUTO) 4.5 % (1.0-10.0); NEUTROPHILS % (AUTO) 78.1 % (45.0-75.0); NITRITE,URINE NEGATIVE (NEGATIVE); PH,URINE 7 (4.5-8.0); PLATELET COUNT 273 K/UL (150-450); PROTEIN,URINE NEGATIVE (NEGATIVE); RED BLOOD COUNT 3.76 M/UL (4.70-6.10); RED CELL DISTRIBUTION WIDTH 13.1 % (11.6-14.8); UROBILINOGEN,URINE NORMAL MG/DL (0.0-1.0); WHITE BLOOD COUNT 15.4 K/UL (4.8-10.8)
--- NOTE | 2018-12-29 02:15 | NUR ---
ED Nurse Note: report given to TERESA Terry, pt transferring to Tele, vss, NSR on cardiac nurse practitioner, resp even and unlabored on RA, normal skin sign at this time.
--- NOTE | 2018-12-29 02:50 | NUR ---
NURSE NOTES: Received report from LONDON Li RN. Patient was transferred to Telemetry unit from ER via [facility] without incident. No signs of acute distress noted; denies pain at this time. AOx4; able to make needs known. Primarily Niuean speaking. Ambulates with assistance. Checked IV sites; patent and flushed. No erythema, bleeding, or infiltration noted. Patient put on the Tele box; sinus rhythm on the monitor (90s). Belongings list checked. Bed at lowest position, brakes on, siderails up x3. Call light within reach. Will continue to monitor.
[2018-12-29] MEDS ORDERED: COLACE100 MG ORAL (03:00)
[2018-12-29] MEDS: NovoLOG Insulin Flexpen SUBQ SCH ×4 (06:03→21:22)
--- NOTE | 2018-12-29 06:04 | NUR ---
NURSE NOTES: Attempted to scan Novolog pen, but unsuccessful. TERESA Mcnamara witnessed administration of 2 units insulin for blood sugar level of 145 per sliding scale.
[2018-12-29] MEDS ORDERED: NovoLOG Insulin Flexpen SUBQ SCH (06:30)
--- NOTE | 2018-12-29 07:15 | NUR ---
NURSE NOTES: I received the patient awake and resting in bed. Patient alert and oriented x4. Bed in the lowest position and call light within reach. Patient does not display any signs of distress or SOB. I will continue to monitor the patient and implement care.
[2018-12-29 07:23] LABS: BASOPHILS % (AUTO) 0.5 % (0.0-2.0); EOSINOPHILS % (AUTO) 3.1 % (0.0-3.0); HEMATOCRIT 32.9 % (42.0-52.0); LYMPHOCYTES % (AUTO) 11.4 % (20.0-45.0); MEAN CORPUSCULAR VOLUME 98 FL (80-99); MONOCYTES % (AUTO) 5.6 % (1.0-10.0); NEUTROPHILS % (AUTO) 79.3 % (45.0-75.0); PLATELET COUNT 274 K/UL (150-450); RED BLOOD COUNT 3.36 M/UL (4.70-6.10); RED CELL DISTRIBUTION WIDTH 13.2 % (11.6-14.8); WHITE BLOOD COUNT 12.1 K/UL (4.8-10.8)
--- NOTE | 2018-12-29 07:42 | NUR ---
HAND-OFF: Report given to TERESA De León. Patient is awake lying semi-loja's; resting comfortably. In stable condition.
[2018-12-29 09:13] LABS: % IRON SATURATION 14 % (15-50); IRON 41 ug/dL (50-175); TOTAL IRON BINDING CAPACITY 293 ug/dL (250-450)
[2018-12-29] MEDS ORDERED: Isovue-300 100ml vial INJ PRN (12:00)
[2018-12-29] MEDS: Pantoprazole Inj IVP SCH ×2 (14:15→21:23)
--- NOTE | 2018-12-29 14:38 | NUR ---
CASE MANAGEMENT: REVIEW 68/M PRESENTED TO ED FROM HOME CC: BLOOD IN STOOL SI: ACUTE LOWER GI BLEEDING . DIVERTICULOSIS . SYNCOPAL EPISODE T 98.2 HR 115 RR 16 BP 134/88 SAT 94% ROOM AIR WBC 15.7 H/H 14.0/41.6 IS: NS IVF BOLUS X1 PATIENT ADMITTED TO TELEMETRY UNIT 12/28/2018 DCP: PATIENT IS FROM HOME
--- NOTE | 2018-12-29 16:59 | General Progress Note ---
Assessment/Plan Assessment/Plan Assessment - Recurrent Hematochezia, similar to October presentation - Diverticulosis - presumed cause of GIB - bleeding seems to be resolving, doubt repeat colonoscopy useful - HIV (+) - anemia Recommendations - Stat CT angiogram - would order same test if re bleeds in future - check Fe and replace - Monitor CBC - repeat colonoscopy if ongoing bleeding - keep on clears - laxatives after CT done Thank you Brittani Jesus Subjective Allergies: Coded Allergies: No Known Allergies (Unverified , 07/05/16) Objective Last 24 Hour Vital Signs Date Time Temp Pulse Resp B/P (MAP) Pulse Ox O2 Delivery O2 Flow Rate FiO2 12/29/18 16:00 98.1 78 18 131/91 (104) 96 12/29/18 12:00 97.6 78 18 108/67 (81) 96 12/29/18 11:45 77 12/29/18 11:08 98.3 12/29/18 09:00 Room Air 12/29/18 09:00 92 104/55 12/29/18 08:00 98.3 92 18 104/55 (71) 97 12/29/18 07:55 78 12/29/18 04:00 99 12/29/18 04:00 97.8 84 17 96/65 (75) 95 12/29/18 03:05 Room Air 12/29/18 03:00 98.1 91 20 127/89 (102) 98 12/29/18 02:37 89 12/29/18 02:16 98.6 88 16 122/83 100 Room Air 12/29/18 01:00 98.4 89 18 110/67 99 Room Air 12/29/18 00:00 97.8 94 18 120/83 100 Room Air 12/28/18 23:00 98 16 Room Air 12/28/18 23:00 98.4 98 18 132/80 99 Room Air 12/28/18 22:30 98.2 115 16 134/88 94 Room Air Intake and Output 12/28/18 12/29/18 18:59 06:59 Intake Total 2290 ml Balance 2290 ml Intake Oral 120 ml IV Total 2170 ml # Bowel Movements 5 Laboratory Tests 12/28/18 22:50: White Blood Count 15.7H, Red Blood Count 4.29L, Hemoglobin 14.0L, Hematocrit 41.6L, Mean Corpuscular Volume 97, Mean Corpuscular Hemoglobin 32.7H, Mean Corpuscular Hemoglobin Concent 33.7, Red Cell Distribution Width 13.2, Platelet Count 353, Mean Platelet Volume 6.3L, Neutrophils (%) (Auto) 51.4, Lymphocytes ( %) (Auto) 28.1, Monocytes (%) (Auto) 7.9, Eosinophils (%) (Auto) 11.6H, Basophils (%) (Auto) 1.0, Prothrombin Time 10.0, Prothromb Time International Ratio 0.9, Activated Partial Thromboplast Time 26, Sodium Level 139, Potassium Level 4.3, Chloride Level 103, Carbon Dioxide Level 27, Anion Gap 9, Blood Urea Nitrogen 18, Creatinine 1.2, Estimat Glomerular Filtration Rate 59.9, Glucose Level 115H, Calcium Level 9.4, Troponin I 0.010 12/29/18 01:51: White Blood Count 15.4H, Red Blood Count 3.76L, Hemoglobin 12.3L, Hematocrit 36.8L, Mean Corpuscular Volume 98, Mean Corpuscular Hemoglobin 32.7H, Mean Corpuscular Hemoglobin Concent 33.5, Red Cell Distribution Width 13.1, Platelet Count 273, Mean Platelet Volume 6.3L, Neutrophils (%) (Auto) 78.1H, Lymphocytes (%) (Auto) 11.1L, Monocytes (%) (Auto) 4.5, Eosinophils (%) (Auto) 5.6H, Basophils (%) (Auto) 0.6, Urine Color Pale yellow, Urine Appearance Clear, Urine pH 7, Urine Specific [place] 1.010, Urine Protein Negative, Urine Glucose (UA) Negative, Urine Ketones Negative, Urine Blood 1+H, Urine Nitrite Negative, Urine Bilirubin Negative, Urine Urobilinogen Normal, Urine Leukocyte Esterase Negative, Urine RBC 0-2H, Urine WBC 0-2, Urine Squamous Epithelial Cells Occasional, Urine Bacteria Occasional 12/29/18 03:31: Stool Occult Blood Positive 12/29/18 06:20: White Blood Count 12.1H, Red Blood Count 3.36L, Hemoglobin 11.0L, Hematocrit 32.9L, Mean Corpuscular Volume 98, Mean Corpuscular Hemoglobin 32.9H, Mean Corpuscular Hemoglobin Concent 33.6, Red Cell Distribution Width 13.2, Platelet Count 274, Mean Platelet Volume 6.3L, Neutrophils (%) (Auto) 79.3H, Lymphocytes (%) (Auto) 11.4L, Monocytes (%) (Auto) 5.6, Eosinophils (%) (Auto) 3.1H, Basophils (%) (Auto) 0.5, Iron Level 41L, Total Iron Binding Capacity 293, Percent Iron Saturation 14L, Unsaturated Iron Binding 252, Carcinoembryonic Antigen [Pending] Height (Feet): 5 Height (Inches): 6.00 Weight (Pounds): 206 Geneva Jesus MD Dec 29, 2018 16:59
--- NOTE | 2018-12-29 19:53 | NUR ---
HAND-OFF: Report given to TERESA Hall.
--- NOTE | 2018-12-29 19:55 | NUR ---
NURSE NOTES: Received pt from TERESA De León. Pt awake, alert, and talkative. Bed in lowest position. Family at bedside. Call light within reach. Will continue to monitor.
--- NOTE | 2018-12-29 20:08 | Diagnostic Imaging Report ---
EXAM: CT Angiography Abdomen and Pelvis With Intravenous Contrast CLINICAL HISTORY: ABN LABS, abdominal pain TECHNIQUE: Axial computed tomographic angiography images of the abdomen and pelvis with intravenous contrast. CTDI is 0.15, 8.11, 8.11, 64.89, 20.73 mGy and DLP is 1204 mGy-cm. One or more of the following dose reduction techniques were used: automated exposure control, adjustment of the mA and/or kV according to patient size, use of iterative reconstruction technique. MIP reconstructed images were created and reviewed. Coronal and sagittal reformatted images were created and reviewed. COMPARISON: 10/29/17 FINDINGS: VASCULATURE: Aorta: The aorta opacifies normally. No evidence for aortic aneurysm or aortic dissection. Celiac trunk and mesenteric arteries: Mild stenosis is suspected at the origin of the celiac trunk. Renal arteries: Mild stenosis is suspected at the proximal aspect of the right renal artery. Iliac arteries: No acute findings. No occlusion or significant stenosis. Other arteries: The central portions of the superior mesenteric artery are unremarkable. Lung bases: Mild atelectasis at the lung bases. ABDOMEN: Liver: Small nonspecific 8 mm low-density lesion in the right lobe of the liver which has a similar appearance compared to the prior exam. Gallbladder and bile ducts: The gallbladder is unremarkable. No calcified stones. No ductal dilation. Pancreas: The pancreas is unremarkable. No ductal dilation. Spleen: The spleen is unremarkable. Adrenals: There is a 2.3 x 2.2 x 2.5 cm left adrenal nodule which has a similar appearance compared to the prior exam. Kidneys and ureters: The kidneys are unremarkable. No hydronephrosis. Stomach and bowel: Hernia in the left lower quadrant lateral to the rectus abdominis muscle on the left which contains a portion of the sigmoid colon. This has a similar appearance compared to the prior exam. No evidence for surrounding inflammatory changes. Diverticulosis without evidence for diverticulitis. No evidence for significant bowel loop dilation to suggest an obstructive process. PELVIS: Appendix: The appendix is normal. Bladder: The bladder is unremarkable. Reproductive: There is some prominence of the prostate gland with prostate calcifications. ABDOMEN and PELVIS: Intraperitoneal space: No free intraperitoneal fluid or free intraperitoneal gas. Bones/joints: Degenerative changes of the thoracolumbar spine. Some spinal canal stenosis is suspected. This could better be evaluated with MRI. Degenerative changes of the sacroiliac joints. Lumbar dextroscoliosis. No acute fracture. No dislocation. Soft tissues: Small inguinal hernias containing fat only versus spermatic cord lipomas. Lymph nodes: Unremarkable. No enlarged lymph nodes. IMPRESSION: 1. The aorta opacifies normally. No evidence for aortic aneurysm or aortic dissection. 2. There is a 2.3 x 2.2 x 2.5 cm left adrenal nodule which has a similar appearance compared to the prior exam. 3. Hernia in the left lower quadrant lateral to the rectus abdominis muscle on the left which contains a portion of the sigmoid colon. This has a similar appearance compared to the prior exam. No evidence for surrounding inflammatory changes. 4. Diverticulosis without evidence for diverticulitis. 5. Degenerative changes of the thoracolumbar spine. Some spinal canal stenosis is suspected. This could better be evaluated with MRI. 6. Small inguinal hernias containing fat only versus spermatic cord lipomas.
--- NOTE | 2018-12-29 20:30 | History and Physical Report ---
DATE OF ADMISSION: 12/29/2018 CHIEF COMPLAINT: Gastrointestinal bleed and syncope. HISTORY OF PRESENT ILLNESS: The patient is a pleasant 68-year-old male. He is known to me from prior admissions. He has history of human immunodeficiency virus, prior gastrointestinal bleed, hypertension, and hyperlipidemia. He presented with complaints of rectal bleeding and dizziness. According to the patient, he has noted black stools, started on the day prior to admission. Apparently in the emergency room, he had a witnessed syncopal episode. Initial laboratory tests showed hemoglobin of 14. In light of the patient's syncope and bleeding, he is now admitted for further evaluation and care. PAST MEDICAL HISTORY: As above. PAST SURGICAL HISTORY: None. CURRENT MEDICATIONS: Reconciled and reviewed. ALLERGIES: None. FAMILY HISTORY: None. SOCIAL HISTORY: Negative for tobacco, ethanol, or drugs. REVIEW OF SYSTEMS: GENERAL: No fevers or chills. HEENT: No headaches or visual changes. CARDIOPULMONARY: No chest pain or shortness of breath. GASTROINTESTINAL: No nausea or vomiting. Positive black stools. MUSCULOSKELETAL: No joint pain or swelling. NEUROLOGIC: No history of seizures. PHYSICAL EXAMINATION: VITAL SIGNS: Temperature 97.8, pulse 84, respirations 17, and blood pressure 99/65. GENERAL: The patient is a well-developed male, in no apparent distress. He is awake, alert, and oriented x4. NECK: Supple. HEART: Regular rate and rhythm. LUNGS: Clear. ABDOMEN: Soft, nontender, and nondistended. EXTREMITIES: Without clubbing, cyanosis, or edema. LABORATORY DATA: Laboratory showed hemoglobin of 14. Coags are normal. ASSESSMENT: This is a pleasant male admitted with complaints of GI bleed, and syncope, possibly secondary to volume depletion. He has a history of hypertension and human immunodeficiency virus. PLAN: 1. Intravenous PPI. 2. Monitor serial CBCs. 3. Cardiology and GI consultations. 4. Continue human immunodeficiency virus medications. Anish Soliman M.D. DR: FRANSISCA JOB#: [id number] CC:
[2018-12-29] MEDS: Tamsulosin 0.4mg cap ORAL SCH (21:21)
[2018-12-30] VITALS: BP 100/51
--- NOTE | 2018-12-30 01:15 | Consultation ---
DATE OF CONSULTATION: 12/29/2018 GASTROENTEROLOGY CONSULTATION CHIEF COMPLAINT: I was asked to see this patient by Dr. Anish Soliman for evaluation of gastrointestinal bleeding. HISTORY OF PRESENT ILLNESS: The patient is a pleasant 68-year-old man who I saw previously in October for the same issue. The patient now comes in with one-day history of abdominal pain and rectal bleeding. He describes rectal bleeding as reddish black. The patient had 8 bowel movements yesterday, which were bloody, but today only had 1 or 2. He had a similar presentation in October where he came in just the same with abdominal pain and multiple episodes of bright red blood per rectum. He had an endoscopy and colonoscopy at that time. The endoscopy showed gastritis, which was mild and the colonoscopy showed diffuse diverticulosis. The patient also said that he had another procedure done in March 2016 for the same issue showing the diverticulosis. The patient denies any vomiting. PAST MEDICAL HISTORY: History of osteoarthritis, history of HIV positivity, internal hemorrhoids, diverticulosis, hypertension, and recurrent gastrointestinal bleeding. ALLERGIES: None. FAMILY HISTORY: Positive for myocardial infarction in the father. SOCIAL HISTORY: The patient does not smoke or drink alcohol. He is and has 2 sons and 1 daughter. REVIEW OF SYSTEMS: Otherwise negative. PHYSICAL EXAMINATION: GENERAL: A pleasant man seen in his room. HEENT: Normocephalic and atraumatic. Sclerae anicteric. Oropharynx clear. NECK: Supple. CHEST: Clear to auscultation. CARDIOVASCULAR: Revealed a regular rate. ABDOMEN: Soft. EXTREMITIES: Revealed no edema. LABORATORY DATA: Noted. ASSESSMENT: This patient presents with acute gastrointestinal bleeding. On the previous admission, which was only two months ago, he had an endoscopy and colonoscopy and results were diffuse diverticulosis, which was felt to be the likely source of his bleeding. It looks like he is clinically stopping. With respect to gastrointestinal bleeding, a repeat colonoscopy is not likely to identify the culprit diverticulum or blood. A CT angiogram will be done to see if there is a suggestion of the bleeding point. If so then, surgical intervention may be worthwhile. The alternatives include cystoscopy and then conservative management would be appropriate. If he continues to bleed, then a repeat colonoscopy can also be done to evaluate the lower gastrointestinal tract. RECOMMENDATIONS: 1. Continue clear liquid diet. 2. CT scan with mesenteric angiogram. 3. Laxatives afterwards. 4. Followup CBC. Thank you for asking me to participate in the care of this patient. Geneva Jesus M.D. DR: RINA JOB#: [id number] CC: PAMELA
[2018-12-30 04:00] VITALS: BP 162/63
--- NOTE | 2018-12-30 05:11 | NUR ---
NURSE NOTES: Called and left a message with Dr. Soliman regarding pts HTN. Awaiting call back
[2018-12-30] MEDS: NovoLOG Insulin Flexpen SUBQ SCH ×4 (06:30→21:00)
--- NOTE | 2018-12-30 07:20 | NUR ---
NURSE NOTES: I received the patient awake and sitting at the side of the bed eating breakfast. Patient alert and oriented x4. Bed in the lowest position and call light within reach.
--- NOTE | 2018-12-30 07:21 | NUR ---
HAND-OFF: Report given to TERESA De León. Pt stable
[2018-12-30 08:00] VITALS: BP 120/76
[2018-12-30 08:48] LABS: BASOPHILS % (AUTO) 0.7 % (0.0-2.0); HEMATOCRIT 31.1 % (42.0-52.0); HEMOGLOBIN 10.3 G/DL (14.2-18.0); LYMPHOCYTES % (AUTO) 21.1 % (20.0-45.0); MEAN CORPUSCULAR VOLUME 99 FL (80-99); NEUTROPHILS % (AUTO) 60.3 % (45.0-75.0); PLATELET COUNT 264 K/UL (150-450); RED BLOOD COUNT 3.14 M/UL (4.70-6.10); RED CELL DISTRIBUTION WIDTH 13.6 % (11.6-14.8)
[2018-12-30] MEDS: Pantoprazole Inj IVP SCH ×2 (09:18→21:37)
[2018-12-30 11:52] VITALS: BP 119/84
[2018-12-30 16:00] VITALS: BP 132/71
--- NOTE | 2018-12-30 17:58 | General Progress Note ---
Assessment/Plan Problem List: (1) HIV (human immunodeficiency virus infection) ICD Codes: B20 - Human immunodeficiency virus [HIV] disease SNOMED: 58165606 (2) Diverticulosis ICD Codes: K57.90 - Diverticulosis of intestine, part unspecified, without perforation or abscess without bleeding SNOMED: 786814754 (3) Acute lower GI bleeding ICD Codes: K92.2 - Gastrointestinal hemorrhage, unspecified SNOMED: 69955184 (4) Syncope ICD Codes: R55 - Syncope and collapse SNOMED: 221814221 Status: stable, progressing Assessment/Plan cont current rx PPI monitor h/h GI appreciated Subjective ROS Limited/Unobtainable: No Constitutional: Reports: weakness HEENT: Reports: no symptoms Cardiovascular: Reports: no symptoms Respiratory: Reports: no symptoms Gastrointestinal/Abdominal: Reports: blood in stool Genitourinary: Reports: no symptoms Neurologic/Psychiatric: Reports: no symptoms Endocrine: Reports: no symptoms Hematologic/Lymphatic: Reports: anemia Allergies: Coded Allergies: No Known Allergies (Unverified , 07/05/16) All Systems: reviewed and negative except above Subjective no events. small amount of blood in the stool ob. on ppi. Hgb relatively stable. CT noted Objective Last 24 Hour Vital Signs Date Time Temp Pulse Resp B/P (MAP) Pulse Ox O2 Delivery O2 Flow Rate FiO2 12/30/18 16:00 98.2 72 18 132/71 (91) 72 12/30/18 15:25 64 12/30/18 11:52 97.8 72 19 119/84 (96) 72 12/30/18 11:30 70 12/30/18 09:50 98.5 12/30/18 09:18 81 120/76 12/30/18 09:00 Room Air 12/30/18 08:00 98.5 81 15 120/76 (91) 81 12/30/18 07:44 93 12/30/18 04:00 83 12/30/18 04:00 97.9 90 18 162/63 (96) 98 12/30/18 00:00 97.4 80 18 100/51 (67) 95 12/30/18 00:00 71 12/29/18 21:00 Room Air 12/29/18 20:00 76 12/29/18 20:00 98.8 79 18 142/87 (105) 99 Intake and Output 12/29/18 12/30/18 19:00 07:00 Intake Total 1280 ml Balance 1280 ml Intake Oral 480 ml IV Total 800 ml # Voids 3 1 Laboratory Tests 12/30/18 07:50: White Blood Count 10.0, Red Blood Count 3.14L, Hemoglobin 10.3L, Hematocrit 31.1L, Mean Corpuscular Volume 99, Mean Corpuscular Hemoglobin 32.7H, Mean Corpuscular Hemoglobin Concent 32.9, Red Cell Distribution Width 13.6, Platelet Count 264, Mean Platelet Volume 6.2L, Neutrophils (%) (Auto) 60.3, Lymphocytes ( %) (Auto) 21.1, Monocytes (%) (Auto) 7.0, Eosinophils (%) (Auto) 11.0H, Basophils (%) (Auto) 0.7 Height (Feet): 5 Height (Inches): 6.00 Weight (Pounds): 206 General Appearance: WD/WN, alert Neck: supple Cardiovascular: normal rate, regular rhythm Respiratory/Chest: chest wall non-tender, lungs clear, normal breath sounds Abdomen: normal bowel sounds, non tender, soft, no organomegaly Edema: no edema noted Arm (L), no edema noted Arm (R), no edema noted Leg (L), no edema noted Leg (R), no edema noted Pedal (L), no edema noted Pedal (R), no edema noted Generalized Neurologic: bottom loader II-XII grossly normal Anish Soliman MD Dec 30, 2018 17:58
[2018-12-30] MEDS ORDERED: Sorbitol Solution UD 30ml ORAL SCH ×2 (18:20→23:00)
[2018-12-30] MEDS ORDERED: Nulytely 4L ORAL ONE (19:00)
--- NOTE | 2018-12-30 19:21 | General Progress Note ---
Assessment/Plan Assessment/Plan Assessment - Recurrent Hematochezia, similar to October presentation - Diverticulosis - presumed cause of GIB - still showing rectal bleeding - HIV (+) - anemia Recommendations - colonoscopy in am - check Fe and replace - Monitor CBC - keep on clears Subjective Allergies: Coded Allergies: No Known Allergies (Unverified , 07/05/16) Subjective above noted CT angio negative still with some bloody BM this afternoon Objective Last 24 Hour Vital Signs Date Time Temp Pulse Resp B/P (MAP) Pulse Ox O2 Delivery O2 Flow Rate FiO2 12/30/18 16:00 98.2 72 18 132/71 (91) 72 12/30/18 15:25 64 12/30/18 11:52 97.8 72 19 119/84 (96) 72 12/30/18 11:30 70 12/30/18 09:50 98.5 12/30/18 09:18 81 120/76 12/30/18 09:00 Room Air 12/30/18 08:00 98.5 81 15 120/76 (91) 81 12/30/18 07:44 93 12/30/18 04:00 83 12/30/18 04:00 97.9 90 18 162/63 (96) 98 12/30/18 00:00 97.4 80 18 100/51 (67) 95 12/30/18 00:00 71 12/29/18 21:00 Room Air 12/29/18 20:00 76 12/29/18 20:00 98.8 79 18 142/87 (105) 99 Intake and Output 12/29/18 12/30/18 19:00 07:00 Intake Total 1280 ml Balance 1280 ml Intake Oral 480 ml IV Total 800 ml # Voids 3 1 Laboratory Tests 12/30/18 07:50: White Blood Count 10.0, Red Blood Count 3.14L, Hemoglobin 10.3L, Hematocrit 31.1L, Mean Corpuscular Volume 99, Mean Corpuscular Hemoglobin 32.7H, Mean Corpuscular Hemoglobin Concent 32.9, Red Cell Distribution Width 13.6, Platelet Count 264, Mean Platelet Volume 6.2L, Neutrophils (%) (Auto) 60.3, Lymphocytes ( %) (Auto) 21.1, Monocytes (%) (Auto) 7.0, Eosinophils (%) (Auto) 11.0H, Basophils (%) (Auto) 0.7 Height (Feet): 5 Height (Inches): 6.00 Weight (Pounds): 206 Objective WDWN WM NCAT supple CTA RRR Abd soft NT ND no edema Geneva Jesus MD Dec 30, 2018 19:21
--- NOTE | 2018-12-30 19:42 | NUR ---
NURSE NOTES: Report received from TERESA De León. Patient is awake and sitting at the side of the bed. Bed in the lowest position and call light within reach. Heart monitor on. Patient denies pain and no respiratory distress noted. Patient states he has been going to the bathroom. Will continue plan of care.
--- NOTE | 2018-12-30 19:43 | NUR ---
HAND-OFF: Report given to TERESA Virk.
[2018-12-30 20:00] VITALS: BP 109/72
--- NOTE | 2018-12-30 20:30 | NUR ---
HAND-OFF: Report given to TERESA Perkins. Patient golytely was started. Patient was with family. Reassured family that going to the bathroom is normal with Golytely. Patient denies pain and no respiratory distress noted.
[2018-12-30] MEDS: Tamsulosin 0.4mg cap ORAL SCH (21:36)
[2018-12-30] MEDS: Efavirenz 200mg cap ORAL SCH (21:37)
[2018-12-31] VITALS (11 sets, daily range): BP systolic 101–125; BP diastolic 54–74
[2018-12-31] MEDS: NovoLOG Insulin Flexpen SUBQ SCH ×4 (06:30→21:00)
[2018-12-31 06:54] LABS: BASOPHILS % (AUTO) 1.1 % (0.0-2.0); EOSINOPHILS % (AUTO) 8.5 % (0.0-3.0); HEMATOCRIT 27.7 % (42.0-52.0); HEMOGLOBIN 9.1 G/DL (14.2-18.0); MEAN CORPUSCULAR VOLUME 98 FL (80-99); MONOCYTES % (AUTO) 9.2 % (1.0-10.0); NEUTROPHILS % (AUTO) 56.3 % (45.0-75.0); PLATELET COUNT 255 K/UL (150-450); RED BLOOD COUNT 2.82 M/UL (4.70-6.10); RED CELL DISTRIBUTION WIDTH 13.2 % (11.6-14.8)
--- NOTE | 2018-12-31 07:16 | NUR ---
HAND-OFF: Report given to TERESA Hernandes. Endorsed plane of care.
[2018-12-31 07:42] LABS: ALANINE AMINOTRANSFERASE 21 U/L (12-78); ALBUMIN 3.1 G/DL (3.4-5.0); ALBUMIN/GLOBULIN RATIO 0.9 (1.0-2.7); ALKALINE PHOSPHATASE 98 U/L (46-116); ANION GAP 8 mmol/L (5-15); ASPARTATE AMINO TRANSFERASE 22 U/L (15-37); BILIRUBIN,TOTAL 0.3 MG/DL (0.2-1.0); BLOOD UREA NITROGEN 12 mg/dL (7-18); CALCIUM 8.6 MG/DL (8.5-10.1); CARBON DIOXIDE 29 MMOL/L (21-32); CHLORIDE 107 MMOL/L (98-107); CREATININE 1.2 MG/DL (0.55-1.30); POTASSIUM 4.2 MMOL/L (3.5-5.1); SODIUM 144 MMOL/L (136-145)
--- NOTE | 2018-12-31 08:10 | NUR ---
NURSE NOTES: received pt in the bed, awake, alert, oriented, vital signs stable, no co pain, no SOB, respiration regular, skin warm and dry to touch,m intact, pt NPO for colonoscopy, prep done, bed on low position, call light within reach.
--- NOTE | 2018-12-31 08:26 | General Progress Note ---
Assessment/Plan Problem List: (1) HIV (human immunodeficiency virus infection) ICD Codes: B20 - Human immunodeficiency virus [HIV] disease SNOMED: 59195492 (2) Diverticulosis ICD Codes: K57.90 - Diverticulosis of intestine, part unspecified, without perforation or abscess without bleeding SNOMED: 842715011 (3) Acute lower GI bleeding ICD Codes: K92.2 - Gastrointestinal hemorrhage, unspecified SNOMED: 74835185 (4) Syncope ICD Codes: R55 - Syncope and collapse SNOMED: 211272117 Status: stable, progressing Assessment/Plan cont current rx PPI monitor h/h GI appreciated endoscopy today Subjective ROS Limited/Unobtainable: No Constitutional: Reports: malaise, weakness HEENT: Reports: no symptoms Cardiovascular: Reports: no symptoms Respiratory: Reports: no symptoms Gastrointestinal/Abdominal: Reports: no symptoms Genitourinary: Reports: no symptoms Neurologic/Psychiatric: Reports: no symptoms Endocrine: Reports: no symptoms Hematologic/Lymphatic: Reports: anemia Allergies: Coded Allergies: No Known Allergies (Unverified , 07/05/16) All Systems: reviewed and negative except above Subjective no events. no bleeding but decrease h/h noted. from 14 to 9. on ppi. npo for endoscopy Objective Last 24 Hour Vital Signs Date Time Temp Pulse Resp B/P (MAP) Pulse Ox O2 Delivery O2 Flow Rate FiO2 12/31/18 04:00 97.3 63 14 101/61 (74) 97 12/31/18 00:00 81 12/31/18 00:00 96.0 81 16 102/64 (77) 97 12/30/18 21:00 Room Air 12/30/18 20:00 97.9 78 20 109/72 (84) 97 12/30/18 19:07 75 12/30/18 16:00 98.2 72 18 132/71 (91) 72 12/30/18 15:25 64 12/30/18 11:52 97.8 72 19 119/84 (96) 72 12/30/18 11:30 70 12/30/18 09:50 98.5 12/30/18 09:18 81 120/76 12/30/18 09:00 Room Air Intake and Output 12/30/18 12/31/18 19:00 07:00 Intake Total 1480 ml Balance 1480 ml Intake Oral 380 ml IV Total 1100 ml # Voids 2 3 Laboratory Tests 12/31/18 05:05: White Blood Count 9.0, Red Blood Count 2.82L, Hemoglobin 9.1L, Hematocrit 27.7L , Mean Corpuscular Volume 98, Mean Corpuscular Hemoglobin 32.2H, Mean Corpuscular Hemoglobin Concent 32.7, Red Cell Distribution Width 13.2, Platelet Count 255, Mean Platelet Volume 6.7, Neutrophils (%) (Auto) 56.3, Lymphocytes (% ) (Auto) 25.0, Monocytes (%) (Auto) 9.2, Eosinophils (%) (Auto) 8.5H, Basophils (%) (Auto) 1.1, Sodium Level 144, Potassium Level 4.2, Chloride Level 107, Carbon Dioxide Level 29, Anion Gap 8, Blood Urea Nitrogen 12, Creatinine 1.2, Estimat Glomerular Filtration Rate 59.9, Glucose Level 97, Calcium Level 8.6, Total Bilirubin 0.3, Aspartate Amino Transf (AST/SGOT) 22, Alanine Aminotransferase (ALT/SGPT) 21, Alkaline Phosphatase 98, Total Protein 6.5, Albumin 3.1L, Globulin 3.4, Albumin/Globulin Ratio 0.9L Height (Feet): 5 Height (Inches): 6.00 Weight (Pounds): 206 Anish Soliman MD Dec 31, 2018 08:26
[2018-12-31] MEDS ORDERED: Atropine Inj 1mg/10ml Syr IV PRN ×2 (09:00)
[2018-12-31] MEDS ORDERED: fentaNYL 100 mcg/2 mL IV PRN ×2 (09:00)
[2018-12-31] MEDS ORDERED: DiphenhydrAMINE 50mg/ml Inj IVP PRN ×2 (09:00)
[2018-12-31] MEDS ORDERED: Midazolam 2mg/2ml Inj IVP PRN ×2 (09:00)
[2018-12-31] MEDS: Pantoprazole Inj IVP SCH ×2 (10:21→21:00)
--- NOTE | 2018-12-31 11:03 | NUR ---
NURSE NOTES: pt taken to GI lab.
--- NOTE | 2018-12-31 11:06 | Pre-Procedure Note/Attestation ---
Pre-Procedure Note/Attestation Complete Prior to Procedure Planned Procedure: not applicable Procedure Narrative: colonoscopy Indications for Procedure Pre-Operative Diagnosis: gib Attestation I attest that I discussed the nature of the procedure; its benefits; risks and complications; and alternatives (and the risks and benefits of such alternatives ), prior to the procedure, with the patient (or the patient's legal open claims representative). I attest that, if there was a reasonable possibility of needing a blood transfusion, the patient (or the patient's legal open claims representative) was given the [facility] standardized written summary, pursuant to the August Tanya Blood Safety Act ([place] Health and Safety Code # 1645, as amended). I attest that I re-evaluated the patient just prior to the surgery and that there has been no change in the patient's H&P, except as documented below: Paul Wheat MD Dec 31, 2018 11:06
--- NOTE | 2018-12-31 11:21 | Anethesia Preoperative Eval ---
Anesthesia Pre-op PMH/ROS General Date of Evaluation: Dec 31, 2018 Time of Evaluation: 10:50 Anesthesiologist: rian ASA Score: ASA 3 Mallampati Score Class I : Soft palate, uvula, fauces, pillars visible Class II: Soft palate, uvula, fauces visible Class III: Soft palate, base of uvula visible Class IV: Only hard plate visible Mallampati Classification: Class II Surgeon: tobi Diagnosis: rectal bleed Surgical Procedure: colonoscopy Anesthesia History: none Social History: current smoker Family History: no anesthesia problems Allergies: Coded Allergies: No Known Allergies (Unverified , 07/05/16) Medications: see eMAR Patient NPO?: Yes NPO Date: Dec 31, 2018 NPO Time: 0000 Past Medical History Cardiovascular: Reports: HTN Gastrointestinal/Genitourinary: Reports: other - diverticulitis, Endocrine: Reports: DM Hematology/Immune: Reports: other - hiv+ Musculoskeletal/Integumentary: Reports: OA Anesthesia Pre-op Phys. Exam Physician Exam Last Vital Signs Date Time Temp Pulse Resp B/P (MAP) Pulse Ox O2 Delivery O2 Flow Rate FiO2 12/31/18 09:00 Room Air 12/31/18 09:00 72 108/59 12/31/18 08:00 97.1 15 97 Constitutional: NAD Neurologic: CN 2-12 intact Cardiovascular: RRR Respiratory: CTA Gastrointestinal: S/NT/ND Airway Exam Mallampati Score: Class II MO: limited Neck: flexible TMD: 2fb ROM: limited Anesthesia Pre-op A/P Labs Hematology Test 12/31/18 05:05 White Blood Count 9.0 K/UL (4.8-10.8) Red Blood Count 2.82 M/UL (4.70-6.10) L Hemoglobin 9.1 G/DL (14.2-18.0) L Hematocrit 27.7 % (42.0-52.0) L Mean Corpuscular Volume 98 FL (80-99) Mean Corpuscular Hemoglobin 32.2 PG (27.0-31.0) H Mean Corpuscular Hemoglobin Concent 32.7 G/DL (32.0-36.0) Red Cell Distribution Width 13.2 % (11.6-14.8) Platelet Count 255 K/UL (150-450) Mean Platelet Volume 6.7 FL (6.5-10.1) Neutrophils (%) (Auto) 56.3 % (45.0-75.0) Lymphocytes (%) (Auto) 25.0 % (20.0-45.0) Monocytes (%) (Auto) 9.2 % (1.0-10.0) Eosinophils (%) (Auto) 8.5 % (0.0-3.0) H Basophils (%) (Auto) 1.1 % (0.0-2.0) Chemistry Test 12/31/18 05:05 Sodium Level 144 MMOL/L (136-145) Potassium Level 4.2 MMOL/L (3.5-5.1) Chloride Level 107 MMOL/L (98-107) Carbon Dioxide Level 29 MMOL/L (21-32) Anion Gap 8 mmol/L (5-15) Blood Urea Nitrogen 12 mg/dL (7-18) Creatinine 1.2 MG/DL (0.55-1.30) Estimat Glomerular Filtration Rate 59.9 mL/min (>60) Glucose Level 97 MG/DL (74-106) Calcium Level 8.6 MG/DL (8.5-10.1) Total Bilirubin 0.3 MG/DL (0.2-1.0) Aspartate Amino Transf (AST/SGOT) 22 U/L (15-37) Alanine Aminotransferase (ALT/SGPT) 21 U/L (12-78) Alkaline Phosphatase 98 U/L (46-116) Total Protein 6.5 G/DL (6.4-8.2) Albumin 3.1 G/DL (3.4-5.0) L Globulin 3.4 g/dL Albumin/Globulin Ratio 0.9 (1.0-2.7) L Risk Assessment & Plan Assessment: asa3 Plan: mac Status Change Before Surgery: No Pre-Antibiotics Drug: Heavenly Antonio MD Dec 31, 2018 11:21
--- NOTE | 2018-12-31 11:24 | Endoscopy Procedure Note ---
Endoscopy Procedure Note General Indication for Procedure: gib Procedures Performed: colonoscopy Operative Findings/Diagnosis: diverticulosis Specimen: yes Pt Tolerated Procedure Well: Yes Estimated Blood Loss: none Anesthesia Anesthesiologist: rian Anesthesia: MAC Inserted Devices Implant(s) used?: No Quality Quality of Bowel Preparation: Good Did scope reach the cecum?: Yes Was there any complications?: No GI Core Measures 50 yrs or older w/o bx or poly: Not Applicable 10yrs. F/U not recommended: Not Applicable Paul Wheat MD Dec 31, 2018 11:24
--- NOTE | 2018-12-31 11:46 | Immediate Post-Op Evaluation ---
Immediate Post-Op Evalulation Immediate Post-Op Evalulation Procedure: colonoscopy w/bx Date of Evaluation: Dec 31, 2018 Time of Evaluation: 11:44 IV Fluids: 300ml 0.9ns Blood Products: none Estimated Blood Loss: negligible Blood Pressure Systolic: 111 Blood Pressure Diastolic: 71 Pulse Rate: 66 Respiratory Rate: 18 O2 Sat by Pulse Oximetry: 100 Temperature (Fahrenheit): 97.0 Pain Score (1-10): 97.0 Nausea: No Vomiting: No Complications none Patient Status: awake, reacts, patent Hydration Status: adequate Drug: Heavenly Antonio MD Dec 31, 2018 11:46
--- NOTE | 2018-12-31 11:47 | 48 Hour Post Anesthesia Eval ---
Post Anesthesia Evaluation Procedure: colonoscopy w/bx Date of Evaluation: Dec 31, 2018 Time of Evaluation: 11:46 Blood Pressure Systolic: 114 0: 77 Pulse Rate: 68 Respiratory Rate: 18 Temperature (Fahrenheit): 97.0 O2 Sat by Pulse Oximetry: 100 Airway: patent Nausea: No Vomiting: No Pain Intensity: 0 Hydration Status: adequate Cardiopulmonary Status: stable Mental Status/LOC: patient returned to baseline Post-Anesthesia Complications: none Follow-up care needed: N/A Heavenly Saucedo MD Dec 31, 2018 11:47
[2018-12-31] MEDS ORDERED: NS 500ML IVPB ONE (11:50)
--- NOTE | 2018-12-31 14:00 | NUR ---
NURSE NOTES: colonoscopy done, vital signs stable, no co pain, continue monitoring.
--- NOTE | 2018-12-31 19:10 | NUR ---
HAND-OFF: Report given to ALEX MOORE.
--- NOTE | 2018-12-31 19:39 | NUR ---
HAND-OFF: Report given to ALEX MOORE, condition stable..
--- NOTE | 2018-12-31 19:40 | NUR ---
NURSE NOTES: Received report from TERESA Hernandes. Pt awake and resting and in no distress. IV site intact and patent. Will continue with plan of care.
[2018-12-31] MEDS: Tamsulosin 0.4mg cap ORAL SCH (21:00)
[2018-12-31] MEDS: Efavirenz 200mg cap ORAL SCH (21:00)
--- NOTE | 2018-12-31 21:41 | General Progress Note ---
Assessment/Plan Assessment/Plan Assessment - Recurrent Hematochezia, similar to October presentation - Diverticulosis - presumed cause of GIB - HIV (+) - anemia Recommendations - colonoscopy completed - would restart PO diet - check Fe and replace - Monitor CBC Subjective Allergies: Coded Allergies: No Known Allergies (Unverified , 07/05/16) Subjective above noted CT angio negative still with some bloody BM yesterday H&H lower today colonoscopy completed - diverticulosis Objective Last 24 Hour Vital Signs Date Time Temp Pulse Resp B/P (MAP) Pulse Ox O2 Delivery O2 Flow Rate FiO2 12/31/18 16:00 97.8 74 20 116/54 (74) 98 12/31/18 16:00 72 12/31/18 12:44 97.7 69 18 116/71 (86) 95 12/31/18 12:00 97.8 73 19 123/70 100 Room Air 12/31/18 12:00 71 12/31/18 11:50 69 15 125/72 100 Room Air 12/31/18 11:47 68 18 100 12/31/18 11:46 66 18 100 12/31/18 11:42 68 22 122/74 100 Room Air 12/31/18 11:37 69 21 113/73 100 Simple Mask 6 12/31/18 11:32 97.0 66 18 111/71 100 Simple Mask 6 12/31/18 09:00 Room Air 12/31/18 09:00 72 108/59 12/31/18 08:00 97.1 72 15 108/59 (75) 97 12/31/18 08:00 70 12/31/18 04:00 63 12/31/18 04:00 97.3 63 14 101/61 (74) 97 12/31/18 00:00 81 12/31/18 00:00 96.0 81 16 102/64 (77) 97 Intake and Output 12/30/18 12/31/18 19:00 07:00 Intake Total 1480 ml Balance 1480 ml Intake Oral 380 ml IV Total 1100 ml # Voids 2 3 Laboratory Tests 12/31/18 05:05: White Blood Count 9.0, Red Blood Count 2.82L, Hemoglobin 9.1L, Hematocrit 27.7L , Mean Corpuscular Volume 98, Mean Corpuscular Hemoglobin 32.2H, Mean Corpuscular Hemoglobin Concent 32.7, Red Cell Distribution Width 13.2, Platelet Count 255, Mean Platelet Volume 6.7, Neutrophils (%) (Auto) 56.3, Lymphocytes (% ) (Auto) 25.0, Monocytes (%) (Auto) 9.2, Eosinophils (%) (Auto) 8.5H, Basophils (%) (Auto) 1.1, Sodium Level 144, Potassium Level 4.2, Chloride Level 107, Carbon Dioxide Level 29, Anion Gap 8, Blood Urea Nitrogen 12, Creatinine 1.2, Estimat Glomerular Filtration Rate 59.9, Glucose Level 97, Calcium Level 8.6, Total Bilirubin 0.3, Aspartate Amino Transf (AST/SGOT) 22, Alanine Aminotransferase (ALT/SGPT) 21, Alkaline Phosphatase 98, Total Protein 6.5, Albumin 3.1L, Globulin 3.4, Albumin/Globulin Ratio 0.9L Height (Feet): 5 Height (Inches): 6.00 Weight (Pounds): 206 Objective WDWN WM NCAT supple CTA RRR Abd soft NT ND no edema Geneva Jesus MD Dec 31, 2018 21:41
[2019-01-01] VITALS: BP 103/58
[2019-01-01 04:00] VITALS: BP 123/70
[2019-01-01] MEDS: NovoLOG Insulin Flexpen SUBQ SCH ×4 (06:30→20:45)
--- NOTE | 2019-01-01 07:20 | NUR ---
HAND-OFF: Report given to TERESA De León. Endorsed plan of care.
--- NOTE | 2019-01-01 07:40 | NUR ---
HAND-OFF: Report given to TERESA Martines. Endorsed plan of care.
--- NOTE | 2019-01-01 07:54 | NUR ---
NURSE NOTES: Received report from TERESA Perkins. Patient in bed resting, no active s/s cardiac, respiratory distress noticed at this time, denies pain at this time. Patient on room air, AOx4. Bilateral lower extremities elevated. IV on RAC 18G, SL, asymptomatic, patent, intact. Bed in lowest position, side rails upx2, call light within reach. Will continue with the plan of care.
[2019-01-01 08:00] VITALS: BP 122/68
[2019-01-01] MEDS: Pantoprazole Inj IVP SCH ×2 (08:19→20:37)
[2019-01-01 08:37] LABS: BASOPHILS % (AUTO) 1.1 % (0.0-2.0); EOSINOPHILS % (AUTO) 9.7 % (0.0-3.0); HEMATOCRIT 29.1 % (42.0-52.0); HEMOGLOBIN 9.5 G/DL (14.2-18.0); LYMPHOCYTES % (AUTO) 24.2 % (20.0-45.0); MEAN CORPUSCULAR VOLUME 99 FL (80-99); MONOCYTES % (AUTO) 7.6 % (1.0-10.0); NEUTROPHILS % (AUTO) 57.5 % (45.0-75.0); PLATELET COUNT 277 K/UL (150-450); RED BLOOD COUNT 2.94 M/UL (4.70-6.10); RED CELL DISTRIBUTION WIDTH 13.5 % (11.6-14.8)
--- NOTE | 2019-01-01 08:53 | General Progress Note ---
Assessment/Plan Problem List: (1) HIV (human immunodeficiency virus infection) ICD Codes: B20 - Human immunodeficiency virus [HIV] disease SNOMED: 46970545 (2) Diverticulosis ICD Codes: K57.90 - Diverticulosis of intestine, part unspecified, without perforation or abscess without bleeding SNOMED: 918893613 (3) Acute lower GI bleeding ICD Codes: K92.2 - Gastrointestinal hemorrhage, unspecified SNOMED: 27999692 (4) Syncope ICD Codes: R55 - Syncope and collapse SNOMED: 331619626 Status: stable, progressing Assessment/Plan cont current rx PPI dc planning Subjective ROS Limited/Unobtainable: No Constitutional: Reports: malaise, weakness HEENT: Reports: no symptoms Respiratory: Reports: no symptoms Gastrointestinal/Abdominal: Reports: blood in stool Genitourinary: Reports: no symptoms Neurologic/Psychiatric: Reports: no symptoms Endocrine: Reports: no symptoms Hematologic/Lymphatic: Reports: anemia Allergies: Coded Allergies: No Known Allergies (Unverified , 07/05/16) All Systems: reviewed and negative except above Subjective no events. GI noted. no active bleeding. Objective Last 24 Hour Vital Signs Date Time Temp Pulse Resp B/P (MAP) Pulse Ox O2 Delivery O2 Flow Rate FiO2 01/01/19 08:19 74 155/77 01/01/19 04:00 98.0 81 20 123/70 (87) 95 01/01/19 04:00 81 01/01/19 00:00 98.1 71 20 103/58 (73) 94 01/01/19 00:00 71 12/31/18 21:00 Room Air 12/31/18 20:00 97.1 86 20 108/68 (81) 97 12/31/18 20:00 86 12/31/18 16:00 97.8 74 20 116/54 (74) 98 12/31/18 16:00 72 12/31/18 12:44 97.7 69 18 116/71 (86) 95 12/31/18 12:00 97.8 73 19 123/70 100 Room Air 12/31/18 12:00 71 12/31/18 11:50 69 15 125/72 100 Room Air 12/31/18 11:47 68 18 100 12/31/18 11:46 66 18 100 12/31/18 11:42 68 22 122/74 100 Room Air 12/31/18 11:37 69 21 113/73 100 Simple Mask 6 12/31/18 11:32 97.0 66 18 111/71 100 Simple Mask 6 12/31/18 09:00 Room Air 12/31/18 09:00 72 108/59 Intake and Output 12/31/18 01/01/19 19:00 07:00 Intake Total 1150 ml Output Total 500 ml Balance 650 ml Intake Oral 850 ml IV Total 300 ml Output Urine Total 500 ml # Voids 3 3 Laboratory Tests 01/01/19 07:45: White Blood Count 9.0, Red Blood Count 2.94L, Hemoglobin 9.5L, Hematocrit 29.1L , Mean Corpuscular Volume 99, Mean Corpuscular Hemoglobin 32.2H, Mean Corpuscular Hemoglobin Concent 32.5, Red Cell Distribution Width 13.5, Platelet Count 277, Mean Platelet Volume 6.2L, Neutrophils (%) (Auto) 57.5, Lymphocytes ( %) (Auto) 24.2, Monocytes (%) (Auto) 7.6, Eosinophils (%) (Auto) 9.7H, Basophils (%) (Auto) 1.1 Height (Feet): 5 Height (Inches): 6.00 Weight (Pounds): 206 General Appearance: WD/WN, alert Neck: supple Cardiovascular: normal rate Respiratory/Chest: chest wall non-tender, lungs clear, normal breath sounds Abdomen: normal bowel sounds, non tender, soft, no organomegaly Edema: no edema noted Arm (L), no edema noted Arm (R), no edema noted Leg (L), no edema noted Leg (R), no edema noted Pedal (L), no edema noted Pedal (R), no edema noted Generalized Neurologic: cataract lens generator II-XII grossly normal, alert, oriented x 3, responsive Anish Soliman MD Jan 01, 2019 08:53
[2019-01-01] MEDS ORDERED: PROTONIX20 MG ORAL (08:54)
[2019-01-01 12:00] VITALS: BP 105/61
--- NOTE | 2019-01-01 13:51 | Procedure Note ---
DATE OF PROCEDURE: 12/31/2018 SURGEON: Paul Wheat M.D. ANESTHESIOLOGIST: Dr. Dye. REFERRING PHYSICIAN: Geneva Jesus M.D. PROCEDURE: Colonoscopy with biopsy. ANESTHESIA: Per Dr. Dye. INSTRUMENT: Olympus adult flexible colonoscope. INDICATION: Rectal bleeding. The procedure, risks, benefits, and possible consequences, including hemorrhage, aspiration, perforation and infection, and alternative treatments, were explained to the patient/legal guardian by Dr. Paul Wheat and the patient/legal guardian understood and accepted these risks. PROCEDURE IN DETAIL: After informed consent was obtained and the patient was adequately sedated, first rectal exam was performed, which was normal. Then, the scope was advanced from the rectum into the cecum documented by appendix orifice, ileocecal valve, and right upper quadrant palpation. Quality of prep was good. The patient had severe diverticulosis throughout the colon. In both left and right colon, numerous diverticula. No active bleeding at this time. No blood or blood products were seen in this colonoscopy examination. We did a random biopsy from the right and left colon given his prior history of diarrhea to rule out microscopic colitis. Retroflexion of rectum showed evidence of internal hemorrhoids. SUMMARY OF FINDINGS: 1. Severe diverticulosis. 2. Internal hemorrhoids. RECOMMENDATIONS: 1. I will follow the patient. Blood from one of the now has stopped. This happens all the time. 2. We will recommend resuming his diet, monitor his labs, and treat for hemorrhoids if becomes symptomatic. 3. Follow up biopsy results, which are obtained today. 4. Repeat immediate colonoscopy if the patient shows signs and symptoms of rectal bleeding. I want to thank Dr. Jesus for this kind referral. Paul Wheat M.D. DR: MARKELL JOB#: [id number] CC: Geneva Jesus M.D.; Fax#: [phone] Anish Soliman M.D.
--- NOTE | 2019-01-01 15:02 | NUR ---
RD ASSESSMENT & RECOMMENDATIONS SEE CARE ACTIVITY FOR COMPLETE ASSESSMENT DAILY ESTIMATED NEEDS: Needs based on HIV/ 77.6kg abw 25-30 kcals/kg 4346-1028 total kcals .8-1.5 g protein/kg 62-116 g total protein 25-30 mL/kg 0612-3566 total fluid mLs NUTRITION DIAGNOSIS: * Altered GI function R/T diverticulosis as evidenced by low hgb (9.5), adm w. rectal bleeding and abdominal pain, s/p colonoscopy. CURRENT DIET: REGULAR PO DIET RECOMMENDATIONS: Low Fiber/low residue at this time ADDITIONAL RECOMMENDATIONS: * Low fiber/residue diet @ this time * Gradually increase fiber in diet as tolerated to > 38g per day * Monitor H/H * Obtain a standing weight as able
[2019-01-01 16:00] VITALS: BP 114/60
--- NOTE | 2019-01-01 17:07 | NUR ---
CASE MANAGEMENT: REVIEW SI:GI BLEED. T 97.7 HR 70 RR 20 B/P 114/60 SATS 98% ON RA NO LABS TODAY IS: PROTONIX IV Q12H FLOMAX QHS SUSTIVA PO QHS TENORMIN PO QD INSULIN ASPART SUBQ AC/HS TRUVADA PO QHS TELE STATUS
--- NOTE | 2019-01-01 18:47 | General Progress Note ---
Assessment/Plan Assessment/Plan Assessment - Recurrent Hematochezia - Diverticulosis - cause of GIB - HIV (+) - anemia Recommendations - po diet ad theodore - check Fe and replace - Monitor CBC - d/c planning Subjective Allergies: Coded Allergies: No Known Allergies (Unverified , 07/05/16) Subjective above noted no further bleeding tolerating PO Objective Last 24 Hour Vital Signs Date Time Temp Pulse Resp B/P (MAP) Pulse Ox O2 Delivery O2 Flow Rate FiO2 01/01/19 16:00 70 01/01/19 16:00 97.7 70 20 114/60 (78) 98 01/01/19 12:00 72 01/01/19 12:00 97.3 72 20 105/61 (76) 97 01/01/19 09:00 Room Air 01/01/19 08:19 74 155/77 01/01/19 08:00 87 01/01/19 08:00 98.0 87 20 122/68 (86) 97 01/01/19 04:00 98.0 81 20 123/70 (87) 95 01/01/19 04:00 81 01/01/19 00:00 98.1 71 20 103/58 (73) 94 01/01/19 00:00 71 12/31/18 21:00 Room Air 12/31/18 20:00 97.1 86 20 108/68 (81) 97 12/31/18 20:00 86 Intake and Output 12/31/18 01/01/19 19:00 07:00 Intake Total 1150 ml Output Total 500 ml Balance 650 ml Intake Oral 850 ml IV Total 300 ml Output Urine Total 500 ml # Voids 3 3 Laboratory Tests 01/01/19 07:45: White Blood Count 9.0, Red Blood Count 2.94L, Hemoglobin 9.5L, Hematocrit 29.1L , Mean Corpuscular Volume 99, Mean Corpuscular Hemoglobin 32.2H, Mean Corpuscular Hemoglobin Concent 32.5, Red Cell Distribution Width 13.5, Platelet Count 277, Mean Platelet Volume 6.2L, Neutrophils (%) (Auto) 57.5, Lymphocytes ( %) (Auto) 24.2, Monocytes (%) (Auto) 7.6, Eosinophils (%) (Auto) 9.7H, Basophils (%) (Auto) 1.1 Height (Feet): 5 Height (Inches): 6.00 Weight (Pounds): 206 Objective WDWN WM NCAT supple CTA RRR Abd soft NT ND no edema Geneva Jesus MD Jan 01, 2019 18:47
--- NOTE | 2019-01-01 19:14 | Cardiology Report ---
APPROVED REPORT EKG Measurement Heart [id number] Normal sinus rhythm Normal ECG
--- NOTE | 2019-01-01 19:29 | NUR ---
HAND-OFF: Report given to TERESA Dugan.
--- NOTE | 2019-01-01 19:48 | NUR ---
NURSE NOTES: RECEIVED PATIENT RESTING IN BED, NO COMPLAINTS OF PAIN AT THIS TIME. CALL LIGHT AND BEDSIDE TABLE AND URINAL WITH IN REACH, BED IN LOW POSITION. PLAN OF CARE REVIEWED.
[2019-01-01 20:00] VITALS: BP 103/61
[2019-01-01] MEDS: Tamsulosin 0.4mg cap ORAL SCH (20:36)
[2019-01-01] MEDS: Efavirenz 200mg cap ORAL SCH (20:37)
[2019-01-02] VITALS: BP 109/52
[2019-01-02 04:00] VITALS: BP 121/63
[2019-01-02] MEDS: NovoLOG Insulin Flexpen SUBQ SCH ×2 (06:09→11:30)
--- NOTE | 2019-01-02 07:08 | NUR ---
NURSE NOTES: Received patient from TERESA Dugan in bed resting, denies any pain. No s/s of respiratory or cardiac distress. Bed is in lowest level, brakes engaged for safety. Table and call light within reach. Will continue with the plan of care.
--- NOTE | 2019-01-02 07:09 | NUR ---
HAND-OFF: Report given to TERESA AGUILERA. PATIENT RESTING IN BED, NO SIGNS OF DISTRESS NOTED. .
[2019-01-02 08:00] VITALS: BP 116/71
[2019-01-02 08:21] VITALS: BP 116/71
[2019-01-02] MEDS: Pantoprazole Inj IVP SCH (08:21)
--- NOTE | 2019-01-02 12:02 | NUR ---
NURSE NOTES: Patient is discharged home with family via private transportation. All discharge orders carried out. IV removed, no bleeding, no infiltration, patient tolerated well. journalism instructor removed. Patient is in stable condition.
--- NOTE | 2019-01-02 19:19 | General Progress Note ---
Assessment/Plan Assessment/Plan Assessment - Recurrent Hematochezia - Diverticulosis - cause of GIB - HIV (+) - anemia Recommendations - po diet ad theodore - check Fe and replace - Monitor CBC - d/c planning Subjective Allergies: Coded Allergies: No Known Allergies (Unverified , 07/05/16) Subjective above noted no further bleeding tolerating PO for d/c today Objective Last 24 Hour Vital Signs Date Time Temp Pulse Resp B/P (MAP) Pulse Ox O2 Delivery O2 Flow Rate FiO2 01/02/19 09:00 Room Air 01/02/19 08:21 84 116/71 01/02/19 08:00 97.2 79 20 116/71 (86) 97 01/02/19 08:00 79 01/02/19 04:00 97.5 60 20 121/63 (82) 97 01/02/19 04:00 68 01/02/19 00:00 60 01/02/19 00:00 97.0 60 20 109/52 (71) 99 01/01/19 21:00 Room Air 01/01/19 20:00 98.3 64 20 103/61 (75) 96 01/01/19 20:00 64 Intake and Output 01/01/19 01/02/19 19:00 07:00 Intake Total 120 ml Balance 120 ml Intake Oral 120 ml # Voids 3 2 Height (Feet): 5 Height (Inches): 6.00 Weight (Pounds): 205 Objective WDWN WM NCAT supple CTA RRR Abd soft NT ND no edema Geneva Jseus MD Jan 02, 2019 19:18
--- NOTE | 2019-01-02 23:00 | Discharge Summary ---
DATE OF ADMISSION: 12/29/2018 DATE OF DISCHARGE: 01/02/2019 ADMISSION DIAGNOSES: 1. History of HIV. 2. Hypertension. 3. Diverticulosis. 4. Acute GI bleed. DISCHARGE DIAGNOSES: 1. History of HIV. 2. Hypertension. 3. Diverticulosis. 4. Acute GI bleed. HOSPITAL COURSE: The patient was admitted with complaints of GI bleed and melena. His H and H was monitored. He did have a down trending from 14 to 9. He was given IV PPI. His aspirin was discontinued. GI consultation was obtained. He underwent endoscopy that showed diverticulosis, but no obvious active source of bleeding. The patient will be discharged home on Protonix. He has been asked to resume his aspirin in two weeks and to see his PMD for followup. He has been asked to return for any melena or bright red blood per rectum. DISCHARGE MEDICATIONS: Please see discharge medication list for discharge medications. DIET: Regular diet. ACTIVITY: Ad-Missy. FOLLOWUP: The patient to follow up by his PMD in two weeks. Anish Soliman M.D. DR: AUDIE JOB#: [id number] CC:
== END 2019-01-02 11:56 | disposition home or self-care (01) | DRG 378 ==
LOC: EMR 23:00 → EDBEDREQ 23:37 → 2E 12-29 → EDBEDREQ 12-29 02:03 → 2E 12-29 02:44
DX: K57.91 Diverticulosis of intestine, part unspecified, without perforation or abscess with bleeding (principal); B20 Human immunodeficiency virus [HIV] disease; I10 Essential (primary) hypertension; M19.90 Unspecified osteoarthritis, unspecified site; K64.8 Other hemorrhoids; R55 Syncope and collapse; D64.9 Anemia, unspecified
CPT/HCPCS: 36415; 71045; 74175; 80048; 80053; 81001; 82270; 82378; 82962; 83540; 83550; 84484; 85025; 85610; 85730; 86850; 86900; 86901; 93005; 94003; 94150; 96360; 99284; J1815